=== PATIENT | male | born 1945 | race Asian ===

== ENCOUNTER 2023-04-19 20:11 | Emergency (ER) | payer OTHER, SELFPAY ==
[2023-04-19 20:23] VITALS: BP 155/112
--- NOTE | 2023-04-19 21:53 | ED.GENMED ---
History of Present Illness
General
Chief Complaint: Skin Problem
Source: patient
Exam Limitations: none
Time Seen by Provider: 04/19/23 21:36
Travel History
Have you had any contact with someone who has COVID-19?: No
Do you have any symptoms of coronavirus? Fever > 100 degrees, chills, cough, shortness of breath, sore throat, loss of taste or smell, muscle aches, or headache?: No
History of Present Illness
History of Present Illness:
See MDM
Past History
Past History
ED Past Medical History: HTN and Other (BPH with acute urinary retention requiring Basurto catheter placement)
ED Past Surgical History: None
Social History
Tobacco: Non-smoker
Alcohol: None
Drug: None
Personal: Other (With family)
Living: with family
Employment: Retired
Family History
Family History: Other (Noncontributory); Negative Diabetes
Phy Exam
Physical Exam
Physical Exam:
See MDM
Course
Orders/Labs/Results
Orders:
Orders
04/19/23 21:52
Oxycodone/Acetaminophen [Percocet 5/325] 1 tablet PO NOW STA
Valacyclovir HCl [Valtrex] 1,000 mg PO ONCE ONE
Vital Signs
Initial and Last Documented VS:
Initial Vital Signs
Temp Pulse Resp BP Pulse Ox
97.4 F 85 20 155/112 98
04/19/23 20:23 04/19/23 20:23 04/19/23 20:23 04/19/23 20:23 04/19/23 20:23
Last Documented Vital Signs
Temp Pulse Resp BP Pulse Ox
97.4 F 85 20 155/112 98
04/19/23 20:23 04/19/23 20:23 04/19/23 20:23 04/19/23 20:23 04/19/23 20:23
MDM/Problems Addressed
Differential Diagnosis Includes:
HPI and MDM Narrative:
77-year-old male presenting with a rash and headache. He noticed the rash yesterday morning. The rash has since spread. It does remain on his forehead on the right. He denies any blurry vision or eye pain
On exam, patient has rash consistent with shingles along ophthalmic branch of trigeminal nerve. Pupils equal reactive. No injected sclera
Physical exam
General: Well appearing and non-toxic
HEENT: protecting airway. Sclera not injected. Pupils equal and reactive
Neck: appears supple
CV: No evidence of cyanosis
Resp: No accessory muscle use
Abd: Non-distended
Extremities: No deformities
Neuro: alert
Psych: Normal affect
Skin: Shingles rash to right forehead
Problems Addressed including Acute and Chronic Conditions affecting care:
1. Shingles
Acuity: acute
Prognosis: stable
Details: Will start Valtrex. He denies eye complaint. Discussed follow-up with ophthalmology if he develops any eye pain or visual disturbance
Differential Diagnosis (but not limited to): Shingles, migraine
Testing considered: CT head
Drug therapy (if applicable): OTC meds, please see d/c instruction regarding Rx drugs
Amount and/or Complexity of Data Reviewed
Clinical info obtained from: Patient
External data reviewed: Baseline creatinine clearance between 30-39
Labs I independently reviewed (but not limited to): N/A
Radiology: N/A
Pulse Ox: not hypoxic
EKG independently reviewed: N/A
Multifocal Lens Assembler: N/A
Critical Care: N/A
Risk of Complication:
Social Determinants of health: Good social support
Discussed with other providers: N/A
Escalation of Care includes Admit/Obs: After being observed in the Emergency Department, pt stable for discharge.
Occasional wrong word or 'sound a like' substitutions may have occurred due to the inherent limitations of voice recognition software. Read the chart carefully and recognize, using context, where substitutions have occurred.
*Critical Care Note
Total Time (30-74mins, 75-104mins- exclusive of procedures): Not Applicable
ED Attending Note
-
Portions of this chart may have been created with voice recognition software.� Occasional wrong word or��sound alike� substitutions may have occurred due to the inherent limitations of voice recognition software.
Discharge Plan
Departure
Patient Disposition: Home (Routine Discharge)
Date of Disposition: 04/19/23
Time of Disposition: 21:57
Patient with high blood pressure during this ER visit?: Yes
Discharge Problem:
Shingles
Instructions: Shingles (DC), BLOOD PRESSURE
Prescriptions:
New
valacyclovir [Valtrex] 1 gram tablet
1,000 mg PO BID Qty: 14 0RF
oxycodone 5 mg tablet
5 mg PO Q8H PRN (Reason: Pain) Qty: 7 0RF
No Action
dutasteride 0.5 MG capsule
0.5 mg PO DAILY
tamsulosin 0.4 MG capsule
0.8 mg PO HS
amlodipine 5 MG tablet
5 mg PO DAILY
Patient Comments:
combo med with atenolol 50mg
atenolol 50 MG tablet
50 mg PO DAILY
Patient Comments:
combo med with amlodipine
Rabeprazole Sodium
20 mg PO DAILY
Patient Comments:
combo with domperidone
enteric coated
tolterodine 4 MG capsule,extended release 24hr
4 mg PO DAILY 0RF
Referrals:
Adarsh Garcia MD [Family Provider] -
Activity Restrictions/Additional Instructions:
Please return for any worsening symptoms.
You may return at any time if you have further concerns.
Please follow up with your doctor at the first available appointment, preferably this week.
If you develop eye pain or eye redness, please see the eye doctor.
Thank you for choosing [facility].
Interventions
Interventions:
*Risk Screen - Suicide Last Done: 04/19/23 20:23
*General Assessment Last Done: 04/19/23 20:23
*Neglect/Abuse Screening Last Done: 04/19/23 20:23
ED- Fall Risk Assessment Last Done: 04/19/23 20:23
*ED COVID-19 Vaccine History Last Done: 04/19/23 20:23
ED-Skin Assessment Last Done: 04/19/23 21:52
[2023-04-19] MEDS: VALTREX 1000 MG PO (22:13)
[2023-04-19] MEDS: PERCOCET 5/325 1 TABLET PO (22:13)
[2023-04-19 22:18] VITALS: BP 153/110
== END 2023-04-19 22:20 | disposition home or self-care (01) ==
LOC: EMR 20:11
PROVIDERS: EMERGENCY PHYSICIAN Student in an Organized Health Care Education/Training Program; FAMILY PHYSICIAN Family Medicine
DX: B02.9 Zoster without complications (principal); R51.9 Headache, unspecified; N40.1 Benign prostatic hyperplasia with lower urinary tract symptoms; R33.8 Other retention of urine; I10 Essential (primary) hypertension
CPT/HCPCS: 99283

== ENCOUNTER 2024-05-17 17:09 | Inpatient (IN) | payer OTHER, SELFPAY ==
[2024-05-17] VITALS (9 sets, daily range): BP systolic 112–149; BP diastolic 65–95; BMI 23.0
[2024-05-17 11:49] LABS: % Basophils 0.3 % (0-2); % Eosinophils 1.1 % (0-6); % Immature Granulocytes 0.7 % (0-0.5); % Lymphocytes 13.6 % (20.5-51.1); % Monocytes 10.6 % (1.7-9.3); % Neutrophils 73.7 % (42.2-75.2); Absolute Eosinophils 0.1 10^3/uL (0-0.7); Absolute Immature Granulocytes 0.1 10^3/uL (0-0.05); Absolute Lymphocytes 1.3 10^3/uL (1.2-3.4); Absolute Neutrophils 7.2 10^3/uL (1.4-6.5); Hematocrit 34.5 % (39.0-52.0); Hemoglobin 10.7 g/dL (13.0-18.0); Mean Corpuscular Hgb 25.5 pg (27.0-31.0); Mean Corpuscular Volume 82.1 fL (80.0-94.0); Mean Platelet Volume 9.3 fL (7.4-10.4); Nucleated Red Blood Cells % 0 % (-); Platelet Count 565 10^3/uL (130-400); Red Cell Dist. Width 14.6 % (11.5-14.5); White Blood Cell Count 9.7 10^3/uL (4.8-10.8)
[2024-05-17 12:10] LABS: ALT (SGPT) 48 U/L (0-50); AST (SGOT) 22 U/L (17-59); Albumin 3.2 g/dl (3.5-5.0); Alkaline Phosphatase 89 U/L (38-126); Blood Urea Nitrogen 93 mg/dl (9-20); Carbon Dioxide 15 mmol/L (22-30); Chloride 107 mmol/L (98-107); Glucose 127 mg/dl (70-99); Potassium 5.9 mmol/L (3.5-5.1); Sodium 134 mmol/L (135-145); Total Bilirubin 0.5 mg/dl (0.2-1.3); Total Protein 6.2 g/dl (6.3-8.2); eGFR 8.63
[2024-05-17] MEDS: NSS 1000 IV (12:51)
--- NOTE | 2024-05-17 13:15 | ED.GENMED ---
History of Present Illness
General
Chief Complaint: Failure to Thrive
Time Seen by Provider: 05/17/24 12:18
History of Present Illness
History of Present Illness:
78-year-old male with history of hypertension, CKD presenting to the emergency department for concern of failure to thrive. Patient arrives with his daughter in law who notes that his in 05/05 unexpectedly. Since then patient has
had a decline and in the past 2 days has not eaten or drank anything. He has also had decreased urination. She notes chronic incontinence of both urine and stool. No report of any fever. Patient himself denies chest pain or difficulty breathing.
He denies abdominal pain. No report of any fall. [id number] notes that the last time he had his creatinine checked, it was 3. No additional history obtained at this time.
Past History
Past History
ED Past Medical History: HTN and Other (BPH with acute urinary retention requiring Basurto catheter placement)
ED Past Surgical History: None
Social History
Tobacco: Non-smoker
Alcohol: None
Drug: None
Personal: Other (With family)
Living: with family
Employment: Retired
Family History
Family History: Other (Noncontributory); Negative Diabetes
Phy Exam
Physical Exam
Physical Exam:
General: Dry mucous membranes
HEENT: protecting airway
Neck: appears supple
CV: Normal heart rate, regular rhythm
Resp: No accessory muscle use, no increased work of breathing, lungs clear to auscultation bilaterally
Abd: Soft and non-distended, no tenderness to palpation
Extremities: No deformities, no swelling, no erythema
Neuro: alert, no focal neurologic deficit
: deferred
Rectal: deferred
Psych: Normal affect
Skin: Intact
Course
Orders/Labs/Results
Orders:
Orders
05/17/24 11:31
Complete Blood Count/With Diff Urgent
Comprehensive Metabolic Panel Urgent
05/17/24 12:40
0.9% Sodium Chloride 1000 ml [Nss] 1,000 ml IV BOLUS
05/17/24 12:41
Electrocardiogram (*1) Urgent
Reason for Study: Fatigue / Weakness
EKG- Treatment ONCE
05/17/24 12:50
Troponin I Urgent
05/17/24 13:15
Urinalysis Reflex To Culture Urgent
Date Specimen was Collected: 05/17/24
Time Specimen was Collected: 13:15
Urine Microscopic Reflex Cult Urgent
Abnormal Lab Results
05/17/24 05/17/24
11:31 13:15
RBC 4.20 L 10^6/uL
(4.70-6.10)
Hgb 10.7 L g/dL
(13.0-18.0)
Hct 34.5 L %
(39.0-52.0)
MCH 25.5 L pg
(27.0-31.0)
MCHC 31.0 L g/dL
(33.0-37.0)
RDW 14.6 H %
(11.5-14.5)
Plt Count 565 H 10^3/uL
(130-400)
Abs Immat Gran (auto) 0.1 H 10^3/uL
(0-0.05)
Absolute Neuts (auto) 7.2 H 10^3/uL
(1.4-6.5)
Absolute Monos (auto) 1.0 H 10^3/uL
(0.1-0.6)
Immature Gran % 0.7 H %
(0-0.5)
Lymphocytes % 13.6 L %
(20.5-51.1)
Monocytes % 10.6 H %
(1.7-9.3)
Sodium 134 L mmol/L
(135-145)
Potassium 5.9 H mmol/L
(3.5-5.1)
Carbon Dioxide 15 L mmol/L
(22-30)
BUN 93 H mg/dl
(9-20)
Creatinine 6.2 H* mg/dL
(0.7-1.3)
Glucose 127 H mg/dl
(70-99)
Total Protein 6.2 L g/dl
(6.3-8.2)
Albumin 3.2 L g/dl
(3.5-5.0)
Urine Bacteria (Reflex) Few A
(Negative)
Urine Albumin (Reflex) 2+ A
(Neg - Trace)
05/17/24 11:31
05/17/24 11:31
Vital Signs
Initial and Last Documented VS:
Initial Vital Signs
Temp Pulse Resp BP Pulse Ox
98.3 F 89 16 117/82 99
05/17/24 11:19 05/17/24 11:19 05/17/24 11:19 05/17/24 11:19 05/17/24 11:19
Last Documented Vital Signs
Temp Pulse Resp BP Pulse Ox
98.3 F 74 18 112/65 100
05/17/24 11:19 05/17/24 14:30 05/17/24 14:30 05/17/24 14:14 05/17/24 14:15
MDM/Problems Addressed
MDM/Problems Addressed:
78-year-old male with history of high blood pressure presenting for concern of failure to thrive. Vital signs on arrival are normal.
On exam patient is in no acute distress, does have dry mucous membranes. Patient has had overall decreased p.o. intake in the past 2 days, known history of chronic renal disease so acute on chronic renal disease is a consideration. Patient had
laboratory analysis obtained prior to my assessment with acute kidney injury, creatinine of 6.2 with a BUN of 93. Creatinine last checked on 01/2023 was 2.2. Suspect prerenal from acute dehydration. Did obtain bedside ultrasound, no retention.
[id number] also notes change in behavior, has been calling multiple family members. Suspect underlying uremia. Will start IV fluids. Potassium is elevated at 5.9, however EKG without significant abnormality.
12:50 - Discussed with renal, will evaluate. Plan for admission
*EKG
Interpreted by ED Provider?: Yes
EKG Intrepretation Date: 05/17/24
EKG Intrepretation Time: 13:16
Interpretation: normal
Comparison EKG: no comparison EKG present
Heart Rate: 76
Rate: normal
Rhythm: sinus
O'Brien: left axis deviation
Interval: normal interval
QRS Pattern: normal QRS
Ischemia: no ischemia
*Critical Care Note
Total Time (30-74mins, 75-104mins- exclusive of procedures): Not Applicable
comment:
The high probability of a clinically significant, sudden or life threatening deterioration of the genitourinary system(s), acute renal failure, required my full and direct attention, intervention and personal management. The aggregate critical care
time was 36 minutes. This time is in addition to time spent performing reported procedures but includes the following:
[x] Data Review and interpretation
[x] Patient assessment and monitoring of vital signs
[x] Documentation
[x] Medication orders and management
ED Attending Note
-
Portions of this chart may have been created with voice recognition software.� Occasional wrong word or��sound alike� substitutions may have occurred due to the inherent limitations of voice recognition software.
Discharge Plan
Departure
Patient Disposition: Admit
Date of Disposition: 05/17/24
Time of Disposition: 13:21
Presentation/result/management discussed w/ accepting MD/DO: Hospitalist
Patient with high blood pressure during this ER visit?: No
Condition: Critical
Discharge Problem:
Acute kidney failure, Adult failure to thrive
Prescriptions:
No Action
amlodipine 5 MG tablet
10 mg PO DAILY
chlorthalidone 25 mg Tablet
25 mg PO DAILY
sodium bicarbonate 650 mg Tablet
325 mg PO DAILY
valsartan 320 mg Tablet
320 mg PO QPM
hydralazine 50 mg Tablet
50 mg PO DAILYPRN PRN (Reason: high bp over 160)
rosuvastatin [Crestor] 20 mg Tablet
20 mg PO DAILY
Interventions
Interventions:
*Risk Screen - Suicide Last Done: 05/17/24 12:34
*General Assessment Last Done: 05/17/24 12:33
*Neglect/Abuse Screening Last Done: 05/17/24 12:34
Discharge Date and Time
Print Language: TRINIDADIAN
[2024-05-17 13:28] LABS: Urine Albumin 2+ (Neg - Trace); Urine Bilirubin Negative (Negative); Urine Character Clear (Clear); Urine Color Yellow; Urine Glucose Negative (Negative); Urine Ketone Negative (Negative); Urine Leukocyte Negative (Negative); Urine Nitrite Negative (Negative); Urine Occult Blood Negative (Negative); Urine Specific Gravity 1.015 (<1.030); Urine Urobilinogen Negative (Neg - 1+)
--- NOTE | 2024-05-17 13:32 | W.CON.NEPH ---
Addendum entered and electronically signed by Chris Doran DO 05/17/24 16:21:
Spoke with patient's services coordinator who has not seen him since last April when his creatinine was 2.4. He has missed several appointments. Apparently his underlying etiology his polycystic kidney disease
Original Note:
Consultation
-
Date/Time Consultation Requested: 05/17/24, 1:15 PM
Date/Time Consultation Performed: , 1:15 PM
Requesting Provider: Dr. Mcgarry
Performing Provider: Dr. Doran
Reason for Consultation: JEROMY/CKD 4
Medical History
-
Chief Complaint: JEROMY/CKD 4
History of Present Illness:
The patient is a 78-year-old male with a past medical history of CKD stage IV, who as per discussion with his son, is maintained a creatinine level of 3 per recent lab work within the past year.He follows with another services coordinator at an outside
system in [place]. He has a history of hypertension maintained on a multi drug regimen which includes chlorthalidone, amlodipine and valsartan. He is a history of metabolic acidosis and is maintained on oral bicarbonate therapy. The patient
also has a history of prostate cancer with previous obstructive uropathy per review of older notes. He presented to the hospital with failure to thrive with associated decreased oral intake over the past 2 weeks as well as evolving confusion and
weakness. Of note, his just 2 weeks prior. On presentation to the emergency room, He was hyperkalemic with potassium of 5.9 and in acute renal failure with a BUN of 93 and a creatinine of 6.2. He also had a non-gap metabolic acidosis
with a serum bicarbonate level 15.
Past Medical History
Chronic kidney disease stage IV with baseline creatinine of 3
Hypertension
BPH
Prostate cancer with previous obstructive uropathy
Metabolic acidosis
Social History
Tobacco: Non-Smoker
Alcohol: None
Drug: None
Living: With Family
Family History
CKD wiht family back in [facility]
Allergies / Home Medications
Allergy/AdvReac Type Severity Reaction Status Date / Time
No Known Allergies Allergy Verified 05/17/24 11:21
�Medication �Instructions �Recorded �Confirmed �Type
amlodipine 5 mg tablet 10 mg PO DAILY 09/13/18 05/17/24 History
chlorthalidone 25 mg tablet 25 mg PO DAILY 05/17/24 05/17/24 History
sodium bicarbonate 650 mg tablet 650 mg PO DAILY 05/17/24 05/17/24 History
valsartan 320 mg tablet 320 mg PO QPM 05/17/24 05/17/24 History
Review of Systems
-
Unable to obtain full review of systems at this time due to: Language Barrier
History Source: Family
All other systems: Negative unless noted
Constitutional: Weight Loss and Fatigue
Respiratory: Other (shortness of breath)
Cardiac: Chest Pain
Abdomen/GI: Diarrhea
: No Symptoms and Other (, decreased urine output over past week)
Skin: No Symptoms
Neurological: Other ( increasing confusion as per [id number])
Endocrine: No Symptoms
Hematologic/Lymphatic: No Symptoms
Physical Exam
Vital Signs
Vital Signs
Temp Pulse Resp BP Pulse Ox
98.3 F 74 23 135/86 99
05/17/24 11:19 05/17/24 12:45 05/17/24 12:45 05/17/24 12:22 05/17/24 12:45
Lab Results
05/17/24 11:31
05/17/24 11:31
WBC 9.7 10^3/uL (4.8-10.8) 05/17/24 11:31
RBC 4.20 10^6/uL (4.70-6.10) L 05/17/24 11:31
Hgb 10.7 g/dL (13.0-18.0) L 05/17/24 11:31
Hct 34.5 % (39.0-52.0) L 05/17/24 11:
Plt Count 565 10^3/uL (130-400) H 05/17/24 11:31
Sodium 134 mmol/L (135-145) L 05/17/24 11:
Potassium 5.9 mmol/L (3.5-5.1) H 05/17/24 11:
Chloride 107 mmol/L (98-107) 05/17/24 11:
Carbon Dioxide 15 mmol/L (22-30) L 05/17/24 11:
BUN 93 mg/dl (9-20) H 05/17/24 11:
Creatinine 6.2 mg/dL (0.7-1.3) H* 05/17/24 11:
eGFR 8.63 05/17/24 11:
Glucose 127 mg/dl (70-99) H 05/17/24 11:
Calcium 9.0 mg/dl (8.4-10.2) 05/17/24 11:
Albumin 3.2 g/dl (3.5-5.0) L 05/17/24 11:31
Physical Exam
General: Oriented ( but intermittently confused), No Distress and Nontoxic
HEENT: PERRL, EOMI, Anicteric, Conjunctivae Clear, Ear/Nose Intact, Oropharynx Clear/Moist, Dentition Intact, Facial Symmetry, Neck Supple, Trachea Midline, No JVD and No Thyromegaly
Respiratory: Clear
Cardiac: S1/S2 and Regular Rate/Rhythm
Breast: Deferred by me
Abdomen: Soft, Nontender, Nondistended, Normal Bowel Sounds and No Hepatosplenomegaly
Rectal: Deferred by Provider
Genito-urinary: No Costovertebral Tender
Musculoskeletal: No Clubbing, No Cyanosis and No Edema
Skin: No Rash
Neuro: Nonfocal/Grossly Intact and Other (. No asterixis)
Hematologic/Lymphatic: No Cervical Lymphadenopathy, No Submandibular Lymphadenopathy and No Supraclavicular Lymphadenopathy
Psych: Other ( intermittent confusion noted)
Data Reviewed
-
Ultrasound: Other ( to obtain kidney and bladder ultrasound and review)
Medical Tests (Nuc Med, Echo etc): Other (. EKG report reviewed, sinus rhythm with left axis deviation 70 bpm)
Labs: Labs Reviewed by me ( BMP, CBC)
Old Records: Reviewed ( reviewed old records and labs from February 2020 in electronic medical record creatinine 2.2)
Assessment/Plan
-
Impression:
Acute kidney injury
CKD stage IV with baseline creatinine of 3
Non-gap metabolic acidosis (AG 12)
Hypertension
Hyperkalemia
Is treated prostate cancer
Anemia
Plan:
I was informed by his son that the patient has a baseline creatinine of 3, which was obtained sometimes within the past year by his services coordinator that the [place] area,No other details were available
The patient now presents with increasing confusion and failure to follow up with acute renal failure with associated hyperkalemia and metabolic acidosis
-Hold ARB
- I would administer alkaline IV fluids, i.e. D5W with 150 mEq of sodium bicarbonate per liter at 125 cc per hour
-Continue oral bicarbonate
-Can provide Lokelma , 10 g �3 doses Re: Hyperkalemia, I expect hyperkalemia to improve with correction of non-gap metabolic acidosis
-Obtained kidney and bladder ultrasound (evaluate for obstruction Given previous history of obstructive uropathy in setting of prostate cancer)
-Obtain urinalysis, urine sodium, urine creatinine,and urine protein
-No acute dialysis requirement. However I believe evolving uremia may explain some of the patient's underlying confusion and failure to thrive
-I did explain to both the patient's son and [id number] that dialysis may be in the near future
-Would like to obtain records from his services coordinator in [place]
[2024-05-17 13:55] LABS: Troponin I < 0.012 ng/ml
[2024-05-17 14:21] LABS: Urine Squamous Cell >30 /LPF (Few)
[2024-05-17 14:22] LABS: Urine Amorphous Seen
[2024-05-17 14:23] LABS: Urine Bacteria Few (Negative); Urine Granular Cast 0-2 /LPF (0); Urine Red Blood Cell 0-2 /HPF (0-2); Urine White Cell 0-2 /HPF (0-5)
--- NOTE | 2024-05-17 16:57 | HPS.HSE ---
Family Physician
-
Family Physician: EMRE Begum
Chief Complaint
-
Failure to thrive with low oral intake
History of Present Illness
Patient is a 78 years old male with history of chronic kidney disease stage IV secondary to polycystic kidney disease, multidrug controlled hypertension, history of prostate carcinoma with previous obstructive uropathy.
Patient does not speak [place] and history was taken from medical records as well as patient's son at the bedside
Apparently over the last few weeks patient with decreased to minimal oral intake including fluids after his passing.
Patient was brought to the emergency room for evaluation and with workup was found to have acute kidney injury with elevated creatinine at 6 as well as hyperkalemia.
He is initial workup with bladder scan in the ED showed 75 mL with no evidence of retention.
Patient denies any respiratory, gastrointestinal, or urinary symptoms
He has son at the bedside reports minuscule oral intake and depressive affect.
Medical History
Past Medical History
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
Past Surgical History: Reports None
Social History
Tobacco: Non-smoker
Alcohol: None
Personal:
Living: With Family
Family History
Family History: Not pertinent
Allergies / Home Medications
Allergies reflects when Allergies were last updated in [facility].
Home Medications with original date entered in [facility]
Allergy/Medication List:
Allergies
Allergy/AdvReac Type Severity Reaction Status Date / Time
No Known Allergies Allergy Verified 05/17/24 11:21
Home Medications
amlodipine 5 mg tablet 10 mg PO DAILY 09/13/18
chlorthalidone 25 mg tablet 25 mg PO DAILY 05/17/24
hydralazine 50 mg tablet 50 mg PO DAILYPRN PRN high bp over 160 05/17/24
rosuvastatin 20 mg tablet (Crestor) 20 mg PO DAILY 05/17/24
sodium bicarbonate 650 mg tablet 325 mg PO DAILY 05/17/24
valsartan 320 mg tablet 320 mg PO QPM 05/17/24
Review of Systems
-
A 12 point ROS was completed and negative except as noted: Yes
Physical Exam
Vital Signs
Vital Signs
Temp Pulse Resp BP Pulse Ox
98.3 F 65 14 149/94 100
05/17/24 11:19 05/17/24 16:30 05/17/24 16:30 05/17/24 16:25 05/17/24 14:15
Physical Exam
General: Well Developed, Well Nourished and No Apparent Distress
HEENT: NormoCephalic, Moist mucous membranes and Atraumatic
Respiratory: Clear
Cardiac: S1/S2 and Regular Rhythm; No Murmur or Rub
GI: Soft, Non Tender, Non Distended and Normal Bowel Sounds; No Organomegaly
Rectal: Deferred by Provider
Musculoskeletal: No Clubbing, No Cyanosis and No Edema
Skin: No Rash
Neuro: Nonfocal/grossly intact
Laboratory Results
-
05/17/24 11:31
05/17/24 11:31
Laboratory Results
Total Bilirubin 0.5 mg/dl (0.2-1.3) 05/17/24 11:31
AST 22 U/L (17-59) 05/17/24 11:31
ALT 48 U/L (0-50) 05/17/24 11:31
Alkaline Phosphatase 89 U/L (38-126) 05/17/24 11:31
Troponin I < 0.012 ng/ml 05/17/24 12:50
Impression/Plan
-
IMPRESSION:
Failure to thrive with meniscal oral intake.
Acute kidney injury on CKD stage IV baseline creatinine 2.4.
Acute on chronic metabolic acidosis with normal anion gap
Hyperkalemia
Other conditions:
PKD.
Hypertension.
History of prostate carcinoma treated
Anemia of chronic disease/CKD
PLAN:
Acute kidney injury likely prerenal with failure to thrive and minuscule oral intake reported
Bladder scan in ED 75 mL
Urinalysis bland diet
Nephrology input appreciated.
Ultrasound of the kidneys.
Continue bladder scan for retention.
Hold chlorthalidone and valsartan.
Initiate IV bicarbonate infusion D5 HCO3 150 mEq at 125 ml/hr
Hyperkalemia baseline ECG with no related changes.
Continue alkalinized fluids
Continue oral bicarb
Lokelma
Follow BMP
Currently no indication for urgent dialysis
Essential hypertension
Continue amlodipine
Hold chlorthalidone and losartan given JEROMY
Failure to thrive, deconditioning
Physical therapy assessment
Consider psychiatry evaluation if persistent symptoms of grieving
[2024-05-17] MEDS: LOKELMA 10 GRAM PO (19:42)
[2024-05-17] MEDS: SODIUM BICARBONATE 1150 MEQ IV (20:05)
[2024-05-17] MEDS: HEPARIN 5000 UNITS SC (21:15)
[2024-05-17] MEDS: SODIUM BICARBONATE 325 MG PO (21:16)
[2024-05-17 22:16] LABS: Urine Sodium 108 mmol/L (30-90)
[2024-05-18 03:00] VITALS: BP 131/78
--- NOTE | 2024-05-18 03:56 | PTCARENOTE ---
Pt assessed as per work list flow sheet. Admission questions answered by son due to language barrier. Pt denies pain and SOB. Ambulated to BR. No s/s of distress assessed. Will continue to monitor.
[2024-05-18] MEDS: SODIUM BICARBONATE 1150 MEQ IV ×3 (05:17→21:15)
[2024-05-18] MEDS: LOKELMA 10 GRAM PO ×3 (05:17→18:03)
[2024-05-18 06:00] VITALS: BMI 23.0
[2024-05-18 07:16] VITALS: BP 156/90
[2024-05-18 07:46] LABS: % Basophils 0.4 % (0-2); % Eosinophils 1.2 % (0-6); % Immature Granulocytes 0.5 % (0-0.5); % Lymphocytes 18.4 % (20.5-51.1); % Monocytes 11.3 % (1.7-9.3); % Neutrophils 68.2 % (42.2-75.2); Absolute Eosinophils 0.1 10^3/uL (0-0.7); Absolute Lymphocytes 1.4 10^3/uL (1.2-3.4); Absolute Monocytes 0.9 10^3/uL (0.1-0.6); Absolute Neutrophils 5.1 10^3/uL (1.4-6.5); Hematocrit 31.5 % (39.0-52.0); Hemoglobin 10.3 g/dL (13.0-18.0); Mean Corp Hgb Conc. 32.7 g/dL (33.0-37.0); Mean Corpuscular Hgb 25.9 pg (27.0-31.0); Mean Corpuscular Volume 79.3 fL (80.0-94.0); Mean Platelet Volume 9.2 fL (7.4-10.4); Nucleated Red Blood Cells % 0 % (-); Platelet Count 496 10^3/uL (130-400); Red Blood Cell Count 3.97 10^6/uL (4.70-6.10); White Blood Cell Count 7.5 10^3/uL (4.8-10.8)
[2024-05-18] MEDS: CRESTOR 5 MG PO (07:48)
[2024-05-18] MEDS: NORVASC 10 MG PO (07:48)
[2024-05-18] MEDS: HEPARIN 5000 UNITS SC ×2 (07:49→21:10)
[2024-05-18] MEDS: SODIUM BICARBONATE 325 MG PO (07:49)
[2024-05-18 08:19] LABS: Blood Urea Nitrogen 79 mg/dl (9-20); Calcium 8.2 mg/dl (8.4-10.2); Carbon Dioxide 22 mmol/L (22-30); Chloride 100 mmol/L (98-107); Estimated Creatinine Clearance 11 ml/min; Glucose 116 mg/dl (70-99); Potassium 5.1 mmol/L (3.5-5.1); Sodium 133 mmol/L (135-145); eGFR 11.44
[2024-05-18 11:00] VITALS: BP 138/83
--- NOTE | 2024-05-18 13:21 | W.PN.NEPH.PH ---
Today's Communication / Plan
-
Pending kidney ultrasound
We'll reobtain urine sodium, urine creatinine and urine protein
Maintain IV fluids to her adjusted
No acute dialysis requirements at this time
Assessment/Plan
-
Impression:
Acute kidney injury
CKD stage IV with baseline creatinine of 3
Non-gap metabolic acidosis (AG 12)
Hypertension
Hyperkalemia
Is treated prostate cancer
Anemia
Plan:
I was informed by his son that the patient has a baseline creatinine of 3, which was obtained sometimes within the past year by his oil boiler that the [facility],I spoke with his oil boiler yesterday to inform me that his creatinine was
2.4 in April 2023, but that he has not been seen in a year.She also told me that he does have underlying polycystic kidney disease.
The patient now presents with increasing confusion and failure to follow up with acute renal failure with associated hyperkalemia and metabolic acidosis
-Holding ARB
- , will adjust IV fluids accordingly
-Continue oral bicarbonate
- hyperkalemia, resolved after low, and alkalize IV fluids provided
- pending kidney and bladder ultrasound (evaluate for obstruction Given previous history of obstructive uropathy in setting of prostate cancer)
-No evidence of bladder retention per postvoid bladder scan obtained this morning
-Obtained urinalysis,(2 plus albumin, no blood) urine sodium, urine creatinine,and urine protein
-No acute dialysis requirement. However I believe evolving uremia may explain some of the patient's underlying confusion and failure to thrive
-I did explain to both the patient's son and [id number] that dialysis may be in the near future
-
-
Date of Service: May 18, 2024
CC / HPI / ROS
-
Chief Complaint:
JEROMY
CKD 4
History of Present Illness:
Hemodynamically stable
Creatinine down to 4.9 From 6.2
Metabolic acidosis, improving
Hyperkalemia, improved
Review of Systems:
Subjectively nonoliguric
No fevers
Labs
-
Labs:
WBC 7.5 10^3/uL (4.8-10.8) 05/18/24 07:13
RBC 3.97 10^6/uL (4.70-6.10) L 05/18/24 07:13
Hgb 10.3 g/dL (13.0-18.0) L 05/18/24 07:13
Hct 31.5 % (39.0-52.0) L 05/18/24 07:13
Plt Count 496 10^3/uL (130-400) H 05/18/24 07:13
Sodium 133 mmol/L (135-145) L 05/18/24 07:13
Potassium 5.1 mmol/L (3.5-5.1) 05/18/24 07:13
Chloride 100 mmol/L (98-107) 05/18/24 07:13
Carbon Dioxide 22 mmol/L (22-30) 05/18/24 07:13
BUN 79 mg/dl (9-20) H 05/18/24 07:13
Creatinine 4.9 mg/dL (0.7-1.3) H* 05/18/24 07:13
eGFR 11.44 05/18/24 07:13
Glucose 116 mg/dl (70-99) H 05/18/24 07:13
Calcium 8.2 mg/dl (8.4-10.2) L 05/18/24 07:13
Albumin 3.2 g/dl (3.5-5.0) L 05/17/24 11:31
Physical Exam
-
Vital Signs:
Vital Signs
Temp Pulse Resp BP Pulse Ox
97.3 F 90 16 138/83 99
05/18/24 11:00 05/18/24 11:00 05/18/24 11:00 05/18/24 11:00 05/18/24 11:00
Cardiovascular:: Regular rate and rhythm
Respiratory:: Bilateral: Coarse
Lung Excursion:: Normal
Abdomen:: Nontender and Soft
Bowel Sounds:: Normal
Extremity Edema:: None: Bilateral:
Basurto Catheter: No
[2024-05-18 14:31] VITALS: BP 120/79
--- NOTE | 2024-05-18 15:53 | CM ---
Spoke with patient's son to obtain information for assessment. Patient son stated that patient's 10 days ago and since then patient has moved in with him in his apartment, all one level, 12 steps to enter. He has been independent
with all of his personal care, dressing and bathing. 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 Patient does not drive but family transports him to where he needs. He has no DME. He has never had VN or been to a SNF.
Patient has a prescription plan and uses, [facility], for all his medications.
His PCP is, Judith Ambrose.
Patient's son is hopeful that patient will be able to return home with him when stable for discharge.
Plan: Case management will continue to follow and assist with discharge planning. Will watch for needs.
--- NOTE | 2024-05-18 16:33 | W.PN.HOSP.TC ---
Today's Communication/Plan
-
Continue IV fluids
Follow-up renal function
Assessment / Plan
Assessment / Plan
IMPRESSION:
Failure to thrive with meniscal oral intake.
Metabolic encephalopathy in the settings of uremia
Acute kidney injury on CKD stage IV baseline creatinine 2.4.
Acute on chronic metabolic acidosis with normal anion gap
Hyperkalemia
Other conditions:
PKD.
Hypertension.
History of prostate carcinoma treated
Anemia of chronic disease/CKD
PLAN:
Acute kidney injury on CKD stage III with baseline creatinine 2�3 baseline
PKD
Acute kidney injury likely prerenal in nature in the settings poor oral intake and dehydration.
So far no evidence of retention
Renal/bladder ultrasound pending for complete evaluation per
Creatinine trending down with IV volume expansion while on alkalinized IV fluids
Continue oral bicarb in the edition
Monitor creatinine trend
Has been off chlorthalidone and valsartan since admission
Hyperkalemia
Improved with IV fluids and Lokelma
Essential hypertension
Continue amlodipine
Hold chlorthalidone and losartan given JEROMY
Failure to thrive, deconditioning
Suspect metabolic encephalopathy related to progressive urine
Physical therapy assessment
Consider psychiatry evaluation if persistent symptoms of grieving
Anticipated Discharge: > 48 hours
Subjective/Interval History
-
Date of Service: May 18, 2024
Objective Data
-
Labs:
Laboratory Results
05/18/24
07:13
WBC 7.5
Hgb 10.3 L
Hct 31.5 L
Plt Count 496 H
Sodium 133 L
Potassium 5.1
Chloride 100
Carbon Dioxide 22
BUN 79 H
Creatinine 4.9 H*
Glucose 116 H
Calcium 8.2 L
Vital Signs:
Vital Signs
Temp Pulse Resp BP Pulse Ox
98.5 F 93 16 120/79 99
05/18/24 14:31 05/18/24 14:31 05/18/24 14:31 05/18/24 14:31 05/18/24 14:31
I&O
05/17/24 05/18/24 05/19/24
06:59 06:59 06:59
Output Total 250 / 250
Balance -250 / -250
Physical Exam
-
General: Well Developed and No Apparent Distress
HEENT: Normocephalic, Atraumatic and Moist Mucous Membranes
Respiratory: Clear to Auscultation
Cardiac: Regular Rhythm and S1/S2; Negative Murmur, Rub or Gallop
GI: Soft, Nontender, Nondistended and Normal Bowel Sounds; Negative Organomegaly
Rectal: Deferred by Provider
Musculoskeletal: No Clubbing, No Cyanosis and No Edema
Skin: Negative Rash
Neuro: Nonfocal/Grossly Intact
[2024-05-18 19:00] VITALS: BP 133/84
[2024-05-18 23:00] VITALS: BP 109/68
[2024-05-19] VITALS (7 sets, daily range): BP systolic 111–138; BP diastolic 69–88; PULSE 133
--- NOTE | 2024-05-19 04:10 | PTCARENOTE ---
Pt assessed as per work list flow sheet. Pt appears more interactive with staff this evening. Family stated pt was eating be this today. No s/s of distress assessed. Will continue to monitor.
[2024-05-19] MEDS: LOKELMA 10 GRAM PO ×2 (06:02→14:55)
[2024-05-19 07:16] LABS: Blood Urea Nitrogen 69 mg/dl (9-20); Carbon Dioxide 31 mmol/L (22-30); Chloride 96 mmol/L (98-107); Estimated Creatinine Clearance 12 ml/min; Glucose 117 mg/dl (70-99); Sodium 133 mmol/L (135-145); eGFR 13.38
[2024-05-19] MEDS: SODIUM BICARBONATE 325 MG PO (08:12)
[2024-05-19] MEDS: CRESTOR 5 MG PO (08:14)
[2024-05-19] MEDS: HEPARIN 5000 UNITS SC ×2 (08:14→19:45)
[2024-05-19] MEDS: NORVASC 10 MG PO (08:15)
--- NOTE | 2024-05-19 10:55 | W.PN.NEPH.PH ---
Today's Communication / Plan
-
NSS
Assessment/Plan
-
Impression:
Acute kidney injury
CKD stage IV with baseline creatinine of 3
Non-gap metabolic acidosis (AG 12)
Hypertension
Hyperkalemia
Is treated prostate cancer
Anemia
Plan:
I was informed by his son that the patient has a baseline creatinine of 3, which was obtained sometimes within the past year by his applications architect that the [facility],I spoke with his applications architect yesterday to inform me that his creatinine was
2.4 in April 2023, but that he has not been seen in a year. She also told me that he does have underlying polycystic kidney disease.
The patient now presents with increasing confusion and failure to follow up with acute renal failure with associated hyperkalemia and metabolic acidosis
hold ARB still
change to NSS
follow BMP
ambulation
could follow Cr as outpatient, 2x/week if dc planning
-
-
Date of Service: May 19, 2024
CC / HPI / ROS
-
Chief Complaint:
JEROMY
CKD 4
History of Present Illness:
Hemodynamically stable
Creatinine down to 4.3 From 6.2
Metabolic acidosis, improving
Hyperkalemia, improved
Na low 133
Review of Systems:
Subjectively nonoliguric
No fevers
no CP/SOB
Labs
-
Labs:
WBC 7.5 10^3/uL (4.8-10.8) 05/18/24 07:13
RBC 3.97 10^6/uL (4.70-6.10) L 05/18/24 07:13
Hgb 10.3 g/dL (13.0-18.0) L 05/18/24 07:13
Hct 31.5 % (39.0-52.0) L 05/18/24 07:13
Plt Count 496 10^3/uL (130-400) H 05/18/24 07:13
Sodium 133 mmol/L (135-145) L 05/19/24 06:28
Potassium 5.0 mmol/L (3.5-5.1) 05/19/24 06:28
Chloride 96 mmol/L (98-107) L 05/19/24 06:28
Carbon Dioxide 31 mmol/L (22-30) H 05/19/24 06:28
BUN 69 mg/dl (9-20) H 05/19/24 06:28
Creatinine 4.3 mg/dL (0.7-1.3) H* 05/19/24 06:28
eGFR 13.38 05/19/24 06:28
Glucose 117 mg/dl (70-99) H 05/19/24 06:28
Calcium 8.0 mg/dl (8.4-10.2) L 05/19/24 06:28
Albumin 3.2 g/dl (3.5-5.0) L 05/17/24 11:31
Physical Exam
-
Vital Signs:
Vital Signs
Temp Pulse Resp BP Pulse Ox
98.8 F 70 18 129/88 98
05/19/24 07:40 05/19/24 08:15 05/19/24 07:40 05/19/24 08:15 05/19/24 07:40
Cardiovascular:: Regular rate and rhythm
Respiratory:: Bilateral: CTA and Bilateral: Rales
Lung Excursion:: Normal
Abdomen:: Nontender and Soft
Bowel Sounds:: Normal
Extremity Edema:: None: Bilateral:
[2024-05-19 10:57] LABS: Protein/creatinine Ratio 1.7; Urine Protein 33 mg/dl
[2024-05-19] MEDS: NSS 1000 IV (11:24)
--- NOTE | 2024-05-19 12:55 | PTCARENOTE ---
patient reported to daughter 09/30 middle chest after working with physical therapy. denied chest pain to nursing. b/p 115/79 and heart rate 120-140's after getting back to bed with therapy, denied sob, lightheadedness, dizziness, numbness or
tingling. EKG to be ordered stat. EKg showing NSR with left axis deviation. chest pain resolved at 12:15. at 1241, telephone order obtained for stat Troponin level. troponin level 0.012 at 1254. likely atyptical chest pain per Dr. Bowman,
will continue to monitor.
[2024-05-19 13:25] LABS: Troponin I < 0.012 ng/ml
--- NOTE | 2024-05-19 15:36 | W.PN.HOSP.TC ---
Today's Communication/Plan
-
IV fluids
Monitor BMP.
Monitor oral intake
Assessment / Plan
Assessment / Plan
IMPRESSION:
Failure to thrive with meniscal oral intake.
Metabolic encephalopathy in the settings of uremia
Acute kidney injury on CKD stage IV baseline creatinine 2.4.
Acute on chronic metabolic acidosis with normal anion gap
Hyperkalemia
Other conditions:
PKD.
Hypertension.
History of prostate carcinoma treated
Anemia of chronic disease/CKD
PLAN:
Acute kidney injury on CKD stage III with baseline creatinine 2�3 baseline
PKD
Acute kidney injury likely prerenal in nature in the settings poor oral intake and dehydration.
So far no evidence of retention
Renal/bladder ultrasound pending for complete evaluation per
Creatinine trending down with IV volume expansion while on alkalinized IV fluids.
IV fluids changed to normal saline
Continue oral bicarb in the edition
Monitor creatinine trend
Has been off chlorthalidone and valsartan since admission
Transient episode of chest pain likely atypical on 05/19 baseline ECG and cardiac markers negative for ischemia
Hyperkalemia
Improved with IV fluids and Lokelma
Essential hypertension
Continue amlodipine
Hold chlorthalidone and losartan given JEROMY
Failure to thrive, deconditioning
Suspect metabolic encephalopathy related to progressive urine
Physical therapy assessment
Consider psychiatry evaluation if persistent symptoms of grieving
Anticipated Discharge: 24 - 48 hours
Subjective/Interval History
-
Date of Service: May 19, 2024
Objective Data
-
Labs:
Laboratory Results
05/19/24
06:28
Sodium 133 L
Potassium 5.0
Chloride 96 L
Carbon Dioxide 31 H
BUN 69 H
Creatinine 4.3 H*
Glucose 117 H
Calcium 8.0 L
Vital Signs:
Vital Signs
Temp Pulse Resp BP Pulse Ox
97.6 F 88 16 111/77 98
05/19/24 15:22 05/19/24 15:22 05/19/24 15:22 05/19/24 15:22 05/19/24 15:22
I&O
05/18/24 05/19/24 05/20/24
06:59 06:59 06:59
Intake Total 1380 / 1380
Output Total 250 / 250 1350 / 1350
Balance -250 / -250 30 / 30
Physical Exam
-
General: Well Developed and No Apparent Distress
HEENT: Normocephalic, Atraumatic and Moist Mucous Membranes
Respiratory: Clear to Auscultation
Cardiac: Regular Rhythm and S1/S2; Negative Murmur, Rub or Gallop
GI: Soft, Nontender, Nondistended and Normal Bowel Sounds; Negative Organomegaly
Rectal: Deferred by Provider
Musculoskeletal: No Clubbing, No Cyanosis and No Edema
Skin: Negative Rash
Neuro: Nonfocal/Grossly Intact
[2024-05-20] MEDS: NSS 1000 IV ×2 (00:16→13:25)
[2024-05-20 03:55] VITALS: BP 116/77
--- NOTE | 2024-05-20 04:17 | PTCARENOTE ---
Pt assessed as per work list flow sheet. Pt appears more interactive with staff this evening. Family stated pt was eating better today. Pt had one incident of copious diarrhea. Inc of bowel. No s/s of distress assessed. Will continue to monitor.
[2024-05-20 07:33] VITALS: BP 122/84
[2024-05-20] MEDS: HEPARIN 5000 UNITS SC (07:34)
[2024-05-20] MEDS: CRESTOR 5 MG PO (07:34)
[2024-05-20] MEDS: SODIUM BICARBONATE 325 MG PO (07:35)
[2024-05-20] MEDS: NORVASC 10 MG PO (07:35)
[2024-05-20 08:33] LABS: Blood Urea Nitrogen 57 mg/dl (9-20); Calcium 7.9 mg/dl (8.4-10.2); Carbon Dioxide 27 mmol/L (22-30); Chloride 103 mmol/L (98-107); Estimated Creatinine Clearance 13 ml/min; Glucose 91 mg/dl (70-99); Potassium 4.8 mmol/L (3.5-5.1); Sodium 136 mmol/L (135-145)
--- NOTE | 2024-05-20 11:20 | W.PN.NEPH.PH ---
Today's Communication / Plan
-
IVF
Assessment/Plan
-
Impression:
Acute kidney injury
CKD stage IV with baseline creatinine of 3
Non-gap metabolic acidosis (AG 12)
Hypertension
Hyperkalemia
Is treated prostate cancer
Anemia
Plan:
I was informed by his son that the patient has a baseline creatinine of 3, which was obtained sometimes within the past year by his order selector that the [facility],I spoke with his order selector yesterday to inform me that his creatinine was
2.4 in April 2023, but that he has not been seen in a year. She also told me that he does have underlying polycystic kidney disease.
The patient now presents with increasing confusion and failure to follow up with acute renal failure with associated hyperkalemia and metabolic acidosis
hold ARB still
continue IVF NSS while in house
follow BMP
ambulation
could follow Cr as outpatient at this time, 2x/week if dc planning
d/w DIL
-
-
Date of Service: May 20, 2024
CC / HPI / ROS
-
Chief Complaint:
JEROMY
CKD 4
History of Present Illness:
Hemodynamically stable
Creatinine down to 4.0 From 6.2
Metabolic acidosis, improved
Hyperkalemia, improved
Na better 136
Review of Systems:
Subjectively nonoliguric
No fevers
no CP/SOB
eating hospital food without issue
Labs
-
Labs:
WBC 7.5 10^3/uL (4.8-10.8) 05/18/24 07:13
RBC 3.97 10^6/uL (4.70-6.10) L 05/18/24 07:13
Hgb 10.3 g/dL (13.0-18.0) L 05/18/24 07:13
Hct 31.5 % (39.0-52.0) L 05/18/24 07:13
Plt Count 496 10^3/uL (130-400) H 05/18/24 07:13
Sodium 136 mmol/L (135-145) 05/20/24 06:52
Potassium 4.8 mmol/L (3.5-5.1) 05/20/24 06:52
Chloride 103 mmol/L (98-107) 05/20/24 06:52
Carbon Dioxide 27 mmol/L (22-30) 05/20/24 06:52
BUN 57 mg/dl (9-20) H 05/20/24 06:52
Creatinine 4.0 mg/dL (0.7-1.3) H 05/20/24 06:52
eGFR 14.60 05/20/24 06:52
Glucose 91 mg/dl (70-99) 05/20/24 06:52
Calcium 7.9 mg/dl (8.4-10.2) L 05/20/24 06:52
Albumin 3.2 g/dl (3.5-5.0) L 05/17/24 11:31
Physical Exam
-
Vital Signs:
Vital Signs
Temp Pulse Resp BP Pulse Ox
98.1 F 104 20 103/68 98
05/20/24 11:04 05/20/24 11:04 05/20/24 11:04 05/20/24 11:04 05/20/24 11:04
Cardiovascular:: Regular rate and rhythm
Respiratory:: Bilateral: Coarse
Lung Excursion:: Normal
Abdomen:: Nontender and Soft
Bowel Sounds:: Normal
Extremity Edema:: None: Bilateral:
[2024-05-20 11:29] VITALS: BP 104/70
--- NOTE | 2024-05-20 13:54 | CM ---
Patient is progressing well in PT, close to baseline.
Plan: Case management will continue to follow and assist with discharge planning. Home with his son.
--- NOTE | 2024-05-20 14:23 | W.DS.TRANS ---
DC Summary - Kennel Worker
-
Discharge Instructions:
Discharge Diagnosis/Procedures IMPRESSION:
Failure to thrive with meniscal oral intake.
Metabolic encephalopathy in the settings of
uremia
Acute kidney injury on CKD stage IV baseline
creatinine 2.4.
Acute on chronic metabolic acidosis with normal
anion gap
Hyperkalemia
Other conditions:
PKD.
Hypertension.
History of prostate carcinoma treated
Anemia of chronic disease/CKD
Diet Regular
Blood Work BMP in one week
Instructions:
Stand-Alone Forms:
Changes to Home Medications: No
Discharge Medications:
DC Medications w/original date entered in [employer]
amlodipine 5 mg tablet 10 mg PO DAILY Blood Pressure 09/13/18
chlorthalidone 25 mg tablet 25 mg PO DAILY Blood Pressure 05/17/24
hydralazine 50 mg tablet 50 mg PO DAILYPRN PRN high bp over 160 05/17/24
rosuvastatin 20 mg tablet (Crestor) 20 mg PO DAILY High Cholesterol 05/17/24
sodium bicarbonate 650 mg tablet 325 mg PO DAILY Electrolyte Repletion 05/17/24
valsartan 320 mg tablet 320 mg PO QPM Blood Pressure 05/17/24
Home Medication Changes
Pending Results: No
[2024-05-20 14:37] VITALS: BP 115/80
== END 2024-05-20 17:28 | disposition home or self-care (01) | DRG 682 ==
LOC: 3 WEST ACU 17:09
PROVIDERS: Emergency Medicine; Specialist; ADMITTING PHYSICIAN Internal Medicine; CONSULT PHYSICIAN Specialist; EMERGENCY PHYSICIAN Student in an Organized Health Care Education/Training Program; FAMILY PHYSICIAN Nurse Practitioner Family
DX: N17.9 Acute kidney failure, unspecified (principal); G93.41 Metabolic encephalopathy; Q61.3 Polycystic kidney, unspecified; E87.21 Acute metabolic acidosis; E87.22 Chronic metabolic acidosis; N18.4 Chronic kidney disease, stage 4 (severe); R62.7 Adult failure to thrive; D63.1 Anemia in chronic kidney disease; E87.5 Hyperkalemia; I10 Essential (primary) hypertension; N40.1 Benign prostatic hyperplasia with lower urinary tract symptoms; R32 Unspecified urinary incontinence; Z63.4 Disappearance and death of family member; Z79.899 Other long term (current) drug therapy; Z85.46 Personal history of malignant neoplasm of prostate
CPT/HCPCS: 76770; 80048; 80053; 81003; 81015; 82570; 84156; 84300; 84484; 85025; 93005; 96360; 97163; 99291

== ENCOUNTER 2024-06-08 10:25 | Emergency (ER) | payer OTHER, SELFPAY ==
[2024-06-08 10:31] VITALS: BP 136/92
--- NOTE | 2024-06-08 11:04 | ED.GENMED ---
History of Present Illness
<Luz Ventura PA-C - Last Filed: 06/08/24 18:06>
General
Chief Complaint: Abnormal Lab Value
Source: patient
Exam Limitations: none
Time Seen by Provider: 06/08/24 10:56
Nursing documentation reviewed up to this point in time: agreed with
History of Present Illness
History of Present Illness:
This is a 78-year-old male with a past medical history of CKD recently diagnosed, BPH, hypertension, who presents emergency department today with concerns of hyperkalemia. He was getting routine blood work done with his primary care provider when
they noted a potassium value of 6.1 yesterday on outpatient blood work and he was advised to report to the emergency department immediately. He notes chronic swelling in his lower extremities but denies any chest pain today, denies shortness of
breath, burning with urination, abdominal pain, nausea, vomiting. He reports his lower extremity swelling is associated with pain with palpation. He has his first appointment with nephrology tomorrow. Of note, he was discharged from here on
05/20/2024 for acute kidney injury secondary to poor oral intake he was also found to be hyperkalemic. He currently takes amlodipine and sodium bicarbonate.
Past History
<Luz Ventura PA-C - Last Filed: 06/08/24 18:06>
Past History
ED Past Medical History: HTN and Other (BPH with acute urinary retention requiring Basurto catheter placement)
ED Past Surgical History: None
Social History
Tobacco: Non-smoker
Alcohol: None
Drug: None
Personal: Other (With family)
Living: with family
Employment: Retired
Family History
Family History: Other (Noncontributory); Negative Diabetes
Review of Systems
<Luz Ventura PA-C - Last Filed: 06/08/24 18:06>
Review of Systems
All Other Systems: ROS reviewed and negative except as documented in HPI and ROS
Phy Exam
<Luz Ventura PA-C - Last Filed: 06/08/24 18:06>
Physical Exam
Physical Exam:
General: Patient is well appearing and in no acute distress; non-toxic
Skin: Warm and dry, no rashes or lesions
Head: Normocephalic, atraumatic
Eyes: Sclera non-icteric. EOMs intact. PERRLA.
Cardiac: Regular rate and rhythm, no murmurs
Peripheral Vascular: Bilateral pedal edema, 2+ DP pulses bilaterally
Pulm: Normal respiratory effort, no wheezes, rales, or rhonchi
Abdomen: No abdominal tenderness to palpation
Neuro: CN II-XII intact, no focal neurologic deficits.
Psychiatric: Appropriate mood and affect.
Course
<Luz Ventura PA-C - Last Filed: 06/08/24 18:06>
Orders/Labs/Results
Orders:
Orders
06/08/24 10:27
Electrocardiogram (*1) Urgent
Reason for Study: Chest Pain
EKG- Treatment ONCE
06/08/24 11:36
CPK [Creatine Phosphokinase] Urgent
Complete Blood Count/With Diff Urgent
Comprehensive Metabolic Panel Urgent
Magnesium Urgent
06/08/24 12:25
Bladder Scan- Treatment ONCE
Sodium Zirconium Cyclosilicate [Lokelma] 10 gram PO NOW STA
06/08/24 12:33
Urinalysis Reflex To Culture Urgent
Date Specimen was Collected: 06/08/24
Time Specimen was Collected: 11:01
Urine Microscopic Reflex Cult Urgent
Urine Culture Urgent
ALESHIA Source: U
Specimen Description:
Date Specimen was Collected: 06/08/24
Time Specimen was Collected: 11:01
Abnormal Lab Results
06/08/24 06/08/24
11:36 12:33
RBC 3.83 L 10^6/uL
(4.70-6.10)
Hgb 10.0 L g/dL
(13.0-18.0)
Hct 31.7 L %
(39.0-52.0)
MCH 26.1 L pg
(27.0-31.0)
MCHC 31.5 L g/dL
(33.0-37.0)
RDW 15.8 H %
(11.5-14.5)
Absolute Monos (auto) 0.8 H 10^3/uL
(0.1-0.6)
Lymphocytes % 15.3 L %
(20.5-51.1)
Monocytes % 9.8 H %
(1.7-9.3)
Potassium 5.5 H mmol/L
(3.5-5.1)
Chloride 108 H mmol/L
(98-107)
BUN 33 H mg/dl
(9-20)
Creatinine 2.8 H mg/dL
(0.7-1.3)
Glucose 111 H mg/dl
(70-99)
Creatine Kinase 43 L U/L
(55-170)
Total Protein 5.8 L g/dl
(6.3-8.2)
Albumin 3.2 L g/dl
(3.5-5.0)
Leukocyte Esterase Rfl 1+ A
(Negative)
Urine Bacteria (Reflex) Few A
(Negative)
Urine Albumin (Reflex) 2+ A
(Neg - Trace)
06/08/24 11:36
06/08/24 11:36
Vital Signs
Initial and Last Documented VS:
Initial Vital Signs
Temp Pulse Resp BP Pulse Ox
98.2 F 77 16 136/92 99
06/08/24 10:31 06/08/24 10:31 06/08/24 10:31 06/08/24 10:31 06/08/24 10:31
Last Documented Vital Signs
Temp Pulse Resp BP Pulse Ox
98.2 F 77 16 136/92 99
06/08/24 10:31 06/08/24 10:31 06/08/24 10:31 06/08/24 10:31 06/08/24 10:31
<Kuldip Scott, DO - Last Filed: 06/08/24 12:34>
Orders/Labs/Results
Orders:
Orders
06/08/24 10:27
Electrocardiogram (*1) Urgent
Reason for Study: Chest Pain
EKG- Treatment ONCE
06/08/24 11:36
CPK [Creatine Phosphokinase] Urgent
Complete Blood Count/With Diff Urgent
Comprehensive Metabolic Panel Urgent
Magnesium Urgent
06/08/24 12:25
Bladder Scan- Treatment ONCE
Sodium Zirconium Cyclosilicate [Lokelma] 10 gram PO NOW STA
06/08/24 12:33
Urinalysis Reflex To Culture Urgent
Date Specimen was Collected: 06/08/24
Time Specimen was Collected: 11:01
Urine Microscopic Reflex Cult Urgent
Urine Culture Urgent
ALESHIA Source: U
Specimen Description:
Date Specimen was Collected: 06/08/24
Time Specimen was Collected: 11:01
Abnormal Lab Results
06/08/24 06/08/24
11:36 12:33
RBC 3.83 L 10^6/uL
(4.70-6.10)
Hgb 10.0 L g/dL
(13.0-18.0)
Hct 31.7 L %
(39.0-52.0)
MCH 26.1 L pg
(27.0-31.0)
MCHC 31.5 L g/dL
(33.0-37.0)
RDW 15.8 H %
(11.5-14.5)
Absolute Monos (auto) 0.8 H 10^3/uL
(0.1-0.6)
Lymphocytes % 15.3 L %
(20.5-51.1)
Monocytes % 9.8 H %
(1.7-9.3)
Potassium 5.5 H mmol/L
(3.5-5.1)
Chloride 108 H mmol/L
(98-107)
BUN 33 H mg/dl
(9-20)
Creatinine 2.8 H mg/dL
(0.7-1.3)
Glucose 111 H mg/dl
(70-99)
Creatine Kinase 43 L U/L
(55-170)
Total Protein 5.8 L g/dl
(6.3-8.2)
Albumin 3.2 L g/dl
(3.5-5.0)
Leukocyte Esterase Rfl 1+ A
(Negative)
Urine Bacteria (Reflex) Few A
(Negative)
Urine Albumin (Reflex) 2+ A
(Neg - Trace)
06/08/24 11:36
06/08/24 11:36
Vital Signs
Initial and Last Documented VS:
Initial Vital Signs
Temp Pulse Resp BP Pulse Ox
98.2 F 77 16 136/92 99
06/08/24 10:31 06/08/24 10:31 06/08/24 10:31 06/08/24 10:31 06/08/24 10:31
Last Documented Vital Signs
Temp Pulse Resp BP Pulse Ox
98.2 F 77 16 136/92 99
06/08/24 10:31 06/08/24 10:31 06/08/24 10:31 06/08/24 10:31 06/08/24 10:31
<Luz Ventura PA-C - Last Filed: 06/08/24 18:06>
MDM/Problems Addressed
Differential Diagnosis Includes:
ddx include acute renal failure, metabolic acidosis, pseudohyperkalemia, rhabdomyolysis,
MDM/Problems Addressed:
78-year-old male presents emergency department today with concerns about patient blood work abnormalities. He was getting routine blood work done with his primary care provider and was found to be hyperkalemic to 6.1, today's 5.5. He does take
sodium bicarb tablets. 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 Case and treatment plan discussed with attending. Patient stable
for discharge.
Chronic conditions affecting care:
HTN, chronic renal disease
<Luz Ventura PA-C - Last Filed: 06/08/24 18:06>
*Pulse Oximetry
Patient hypoxic: no
*EKG
Interpreted by ED Provider?: Yes
EKG Intrepretation Date: 06/08/24
Interpretation: normal
Comparison EKG: changes noted (decreased rate )
Heart Rate: 69
Rate: normal
Rhythm: sinus
[place]: normal axis
Interval: normal interval
QRS Pattern: normal QRS
*Critical Care Note
Total Time (30-74mins, 75-104mins- exclusive of procedures): Not Applicable
Data Reviewed
Review of Other/Old Records Reveals: Records (Reviewed discharge summary from 05/20/2024)
ED Attending Note
<Luz Ventura PA-C - Last Filed: 06/08/24 18:06>
-
Portions of this chart may have been created with voice recognition software.� Occasional wrong word or��sound alike� substitutions may have occurred due to the inherent limitations of voice recognition software.
<Kuldip Scott DO - Last Filed: 06/08/24 12:34>
ED Attending Note
Patient seen and examined by attending physician: Yes
I performed the substantive portion of visit, reviewed & personally made and approve the management plan that is documented in note by myself or LYNDA.: Yes
ED Attending Note:
Seen with PA examined independently 78-year-old male chronic renal insufficiency sent in due to high potassium here is making urine, no EKG changes, has an appointment at [facility] nephrology tomorrow, will give some binding agents, copies of
his labs to follow-up tomorrow with his [employer]
Discharge Plan
Departure
Patient Disposition: Home (Routine Discharge)
Date of Disposition: 06/08/24
Time of Disposition: 13:05
Patient with high blood pressure during this ER visit?: Yes
Condition: Good
Discharge Problem:
Hyperkalemia, Chronic kidney disease
Instructions: Hyperkalemia (DC), BLOOD PRESSURE
Prescriptions:
No Action
amlodipine 5 MG tablet
10 mg PO DAILY
chlorthalidone 25 mg Tablet
25 mg PO DAILY
sodium bicarbonate 650 mg Tablet
325 mg PO DAILY
valsartan 320 mg Tablet
320 mg PO QPM
hydralazine 50 mg Tablet
50 mg PO DAILYPRN PRN (Reason: high bp over 160)
rosuvastatin [Crestor] 20 mg Tablet
20 mg PO DAILY
Referrals:
Adarsh Garcia MD [Family Provider] -
Activity Restrictions/Additional Instructions:
Your renal function today is at baseline.
Your potassium today was 5.5. You were given a dose of Lokelma.
Please follow up with your [employer] fishing [employer] with your scheduled appointment tomorrow.
PLEASE RETURN EMERGENCY DEPARTMENT SHOULD YOU DEVELOP CHEST PAIN, SHORTNESS OF BREATH, LIGHTHEADEDNESS, DIZZINESS, DIFFICULTY AMBULATING, DIFFICULTY SPEAKING, WEAKNESS IN ONE-SIDED BODY VERSUS OTHER, ANY OTHER SIGNS OR SYMPTOMS WORRISOME TO YOU.
Interventions
Interventions:
*Risk Screen - Suicide Last Done: 06/08/24 11:56
*General Assessment Last Done: 06/08/24 11:56
*Neglect/Abuse Screening Last Done: 06/08/24 11:56
*ED- Fall Risk Assessment Last Done: 06/08/24 11:56
*Nursing Disposition Last Done: 06/08/24 13:40
Discharge Date and Time
Discharge Date/Time: 06/08/24 13:40
Print Language: WOLOF
[2024-06-08 11:53] LABS: % Basophils 0.5 % (0-2); % Eosinophils 5.8 % (0-6); % Immature Granulocytes 0.5 % (0-0.5); % Lymphocytes 15.3 % (20.5-51.1); % Monocytes 9.8 % (1.7-9.3); % Neutrophils 68.1 % (42.2-75.2); Absolute Eosinophils 0.4 10^3/uL (0-0.7); Absolute Lymphocytes 1.2 10^3/uL (1.2-3.4); Absolute Monocytes 0.8 10^3/uL (0.1-0.6); Absolute Neutrophils 5.2 10^3/uL (1.4-6.5); Hematocrit 31.7 % (39.0-52.0); Mean Corp Hgb Conc. 31.5 g/dL (33.0-37.0); Mean Corpuscular Hgb 26.1 pg (27.0-31.0); Mean Corpuscular Volume 82.8 fL (80.0-94.0); Mean Platelet Volume 8.6 fL (7.4-10.4); Nucleated Red Blood Cells % 0 % (-); Platelet Count 294 10^3/uL (130-400); Red Blood Cell Count 3.83 10^6/uL (4.70-6.10); Red Cell Dist. Width 15.8 % (11.5-14.5); White Blood Cell Count 7.6 10^3/uL (4.8-10.8)
[2024-06-08 12:11] LABS: ALT (SGPT) 11 U/L (0-50); AST (SGOT) 17 U/L (17-59); Albumin 3.2 g/dl (3.5-5.0); Alkaline Phosphatase 71 U/L (38-126); Blood Urea Nitrogen 33 mg/dl (9-20); Calcium 9.1 mg/dl (8.4-10.2); Carbon Dioxide 22 mmol/L (22-30); Chloride 108 mmol/L (98-107); Creatine Phosphokinase 43 U/L (55-170); Glucose 111 mg/dl (70-99); Magnesium 1.9 mg/dl (1.6-2.3); Potassium 5.5 mmol/L (3.5-5.1); Sodium 136 mmol/L (135-145); Total Bilirubin 0.5 mg/dl (0.2-1.3); Total Protein 5.8 g/dl (6.3-8.2); eGFR 22.39
[2024-06-08] MEDS: LOKELMA 10 GRAM PO (12:31)
[2024-06-08 12:50] LABS: Urine Albumin 2+ (Neg - Trace); Urine Bilirubin Negative (Negative); Urine Character Clear (Clear); Urine Color Yellow; Urine Glucose Negative (Negative); Urine Ketone Negative (Negative); Urine Leukocyte 1+ (Negative); Urine Nitrite Negative (Negative); Urine Occult Blood Negative (Negative); Urine Urobilinogen Negative (Neg - 1+)
[2024-06-08 13:12] LABS: Urine Red Blood Cell 0-2 /HPF (0-2)
[2024-06-08 13:13] LABS: Urine Bacteria Few (Negative)
== END 2024-06-08 13:40 | disposition home or self-care (01) ==
LOC: EMR 10:25
PROVIDERS: Physician Assistant; EMERGENCY PHYSICIAN Emergency Medicine; FAMILY PHYSICIAN Family Medicine
DX: I12.9 Hypertensive chronic kidney disease with stage 1 through stage 4 chronic kidney disease, or unspecified chronic kidney disease (principal); N18.9 Chronic kidney disease, unspecified; E87.5 Hyperkalemia; M79.89 Other specified soft tissue disorders; N40.1 Benign prostatic hyperplasia with lower urinary tract symptoms; R33.8 Other retention of urine; Z79.899 Other long term (current) drug therapy
CPT/HCPCS: 99283; 80053; 81003; 81015; 82550; 83735; 85025; 87077; 87086; 93005

== ENCOUNTER 2024-08-13 21:44 | Inpatient (IN) | payer OTHER, SELFPAY ==
[2024-08-13] VITALS (16 sets, daily range): BP systolic 121–210; BP diastolic 79–125; BMI 27.5
--- NOTE | 2024-08-13 18:36 | EDRN ---
Александр Chamberlain PA in room w/pt.
--- NOTE | 2024-08-13 18:42 | ED.GENMED ---
History of Present Illness
General
Chief Complaint: Blood Pressure Problem
Source: patient, records and family
Time Seen by Provider: 08/13/24 18:34
History of Present Illness
History of Present Illness:
78-year-old male with past medical history of hypertension, CKD, BPH presenting to the emergency department for evaluation of generally feeling unwell for the last few days, states has had some lower extremity weakness with ambulatory dysfunction,
lightheadedness and vertiginous-like symptoms, headache. He took his blood pressure at home today and noticed the systolic was greater than 200 and diastolic greater than 100 prompting son to bring the patient to the ER for further evaluation.
Patient states the lightheadedness/dizziness and will be ambulating is what ultimately brought him to the ER. He did not attempt any medications prior to arrival. Patient does state that he was taken off of his antihypertensive medications due to
polycystic kidney disease, his discharge summary from April of this year showed that he was supposed to be taking amlodipine 10 mg once daily, hydralazine 50 mg as needed for blood pressures greater than 160 and valsartan 320 mg at nighttime. It
is unclear as to if patient should still be on these medications.
Past History
Past History
ED Past Medical History: HTN, Renal failure and Other (BPH with acute urinary retention requiring Basurto catheter placement)
ED Past Surgical History: Urological
Social History
Tobacco: Non-smoker
Alcohol: None
Drug: None
Personal: (With family)
Living: with family
Employment: Retired
Family History
Family History: Other (Noncontributory); Negative Diabetes
Review of Systems
Review of Systems
All Other Systems: ROS reviewed and negative except as documented in HPI and ROS
Phy Exam
Physical Exam
Physical Exam:
GENERAL: Alert , in no apparent distress
VITAL SIGNS: Blood pressure 186/113 at time of my exam
EYE: pupils equal and reactive, 3 mm bilateral
NECK: Supple, no significant adenopathy.
ENT: o/p clr, mmm.
CARDIAC: Regular rate and rhythm .
LUNGS: Clear breath sounds bilaterally, no acute respiratory distress, no wheezes/rales/rhonchi
ABDOMEN: Soft, without focal tenderness, no r/g, no cvat
NEUROLOGICAL: Alert and oriented, no focal neuro deficits, no ataxia, moves all extremities
SKIN: Warm and dry, skin intact.
MUSCULOSKELETAL: No edema, well perfused.
PSYCH: Normal and appropriate interaction.
Scores
Heart Failure Risk
Heart Failure Risk Score: Not Applicable
Heart Score for Chest Pain Patients
STEMI patient?: Not applicable
Withdrawal Assessment of Alcohol
Withdrawal Assessment Completed?: Not applicable
Course
Orders/Labs/Results
Orders:
Orders
08/13/24 17:48
Electrocardiogram (*1) Urgent
Reason for Study: Hypertension, Benign
EKG- Treatment ONCE
08/13/24 18:41
CT Head W/o Iv Contrast Urgent
Comment:
Reason For Exam: HTN, weakness
08/13/24 19:01
Complete Blood Count/With Diff Urgent
Comprehensive Metabolic Panel Urgent
Magnesium Urgent
Troponin I Urgent
08/13/24 19:25
Urinalysis Reflex To Culture Urgent
Date Specimen was Collected: 08/13/24
Time Specimen was Collected: 19:19
Urine Microscopic Reflex Cult Urgent
Urine Culture Urgent
ALESHIA Source: U
Specimen Description:
Date Specimen was Collected: 08/13/24
Time Specimen was Collected: 19:19
08/13/24 20:30
Nicardipine 40 mg/200 ml [Cardene] 40 mg in 200 ml IV PER PROTOCOL
Initial dose in mg/hr, then titrate:: 5
Titrate to keep:: Other
Titrate to keep other:: BP 160 systolically
Titrate by mg/hr:: 2.5 mg/hr
Frequency of titrations (minutes):: 5-15 minutes
Maximum dose in mg/hr:: 15
Begin to taper infusion when:: Remained at goal for 2hrs
Taper by mg/hr:: 2.5 mg/hr
Frequency of taper (minutes) if patient maintains goal:: every 15-30 minutes
Taper to off?: Yes
If infusion off & no longer maintaining goal:: Contact Provider
Abnormal Lab Results
08/13/24 08/13/24
19: 19:25
RBC 4.04 L 10^6/uL
(4.70-6.10)
Hgb 10.8 L g/dL
(13.0-18.0)
Hct 34.3 L %
(39.0-52.0)
MCH 26.7 L pg
(27.0-31.0)
MCHC 31.5 L g/dL
(33.0-37.0)
RDW 15.0 H %
(11.5-14.5)
Potassium 5.2 H mmol/L
(3.5-5.1)
Chloride 111 H mmol/L
(98-107)
Carbon Dioxide 21 L mmol/L
(22-30)
BUN 37 H mg/dl
(9-20)
Creatinine 2.9 H mg/dL
(0.7-1.3)
Total Protein 5.9 L g/dl
(6.3-8.2)
Albumin 3.4 L g/dl
(3.5-5.0)
Leukocyte Esterase Rfl 2+ A
(Negative)
Urine WBC (Reflex) 30-40 A /HPF
(0-5)
Urine Bacteria (Reflex) Few A
(Negative)
Urine Albumin (Reflex) 3+ A
(Neg - Trace)
08/13/24 19:
08/13/24 19:01
Vital Signs
Initial and Last Documented VS:
Initial Vital Signs
Temp Pulse Resp BP Pulse Ox
98.1 F 75 15 195/125 100
08/13/24 17:54 08/13/24 17:54 08/13/24 17:54 08/13/24 17:54 08/13/24 17:54
Last Documented Vital Signs
Temp Pulse Resp BP Pulse Ox
98.1 F 72 10 153/89 98
08/13/24 17:54 08/13/24 20:45 08/13/24 20:45 08/13/24 20:51 08/13/24 20:45
MDM/Problems Addressed
Differential Diagnosis Includes:
Hypertensive urgency/emergency, CVA, uncontrolled hypertension, medication noncompliance, electrolyte derangement, worsening renal dysfunction
MDM/Problems Addressed:
78-year-old male presenting to the ER for evaluation of generally feeling unwell, headache, lightheadedness/dizziness, noticed hypertension at home. On arrival patient blood pressure 195/125, at time of my exam patient still significantly
hypertensive. Patient and son believe he was taken off of his medications, unclear as to if patient should still be taking these. Will obtain labs, CT of the head, anticipate ordering medications for blood pressure. Patient may require admission
for hypertensive urgency/emergency.
Chronic conditions affecting care: HTN
Acute Exacerbation and/or Progression of Chronic Illness: HTN
*Radiology
Radiology exam reviewed: radiology read reviewed
*Pulse Oximetry
Patient hypoxic: no
*EKG
Heart Rate: 73
Rate: normal
Rhythm: sinus
[place]: left axis deviation
Ischemia: no ischemia
*Barrel Drum Cutter Interpretation
Rate: normal
Rhythm: sinus
*Critical Care Note
Total Time (30-74mins, 75-104mins- exclusive of procedures): 30
comment:
Critical care statement: A total of 30 minutes of critical care time was provided for this patient. This includes management of unstable vital signs, evaluation of the patient at bedside, reviewing the patient's pertinent medical records, discussion
with consultants, review of old EKGs and review of pertinent medical records. This time with separate from time utilized to perform the aforementioned documented procedures
Data Reviewed
Review of Other/Old Records Reveals: Labs, Records and Discharge Summary
Comment
Comment:
8:20 PM: Patient with multiple significantly elevated blood pressures with his last being 210/118. Given his presenting symptoms and continuously elevated blood pressure decision was made to initiate patient on a Cardene drip. Awaiting CT imaging
results. Patient to be admitted.
Patient Management
Discussion with other providers: Hospitalist
Escalation/DeEscalation of care consider admission/obs:
CT scan shows possible normal pressure hydrocephalus. This could potentially be cause for patient's leg weakness. Blood pressure improved on Cardene. Patient still remains somewhat symptomatic however. Plan to admit for hypertensive urgency and
potentially further evaluation of possible normal pressure hydrocephalus.
ED Attending Note
-
Portions of this chart may have been created with voice recognition software.� Occasional wrong word or��sound alike� substitutions may have occurred due to the inherent limitations of voice recognition software.
Discharge Plan
Departure
Patient Disposition: Admit
Date of Disposition: 08/13/24
Time of Disposition: 20:51
Presentation/result/management discussed w/ accepting MD/DO: Hospitalist
Discharge Problem:
Hypertensive urgency, CKD (chronic kidney disease)
Prescriptions:
No Action
amlodipine 5 MG tablet
10 mg PO DAILY
chlorthalidone 25 mg Tablet
25 mg PO DAILY
sodium bicarbonate 650 mg Tablet
325 mg PO DAILY
valsartan 320 mg Tablet
320 mg PO QPM
hydralazine 50 mg Tablet
50 mg PO DAILYPRN PRN (Reason: high bp over 160)
rosuvastatin [Crestor] 20 mg Tablet
20 mg PO DAILY
Referrals:
Adarsh Garcia MD [Family Provider] -
Interventions
Interventions:
*Risk Screen - Suicide Last Done: 08/13/24 17:54
*General Assessment Last Done: 08/13/24 17:54
*Neglect/Abuse Screening Last Done: 08/13/24 17:54
*ED- Fall Risk Assessment Last Done: 08/13/24 18:53
*ED COVID-19 Vaccine History Last Done: 08/13/24 18:53
ED- Cardiac Assessment Last Done: 08/13/24 19:48
ED- Neurological Assessment Last Done: 08/13/24 19:48
ED- Pulmonary Assessment Last Done: 08/13/24 19:48
Discharge Date and Time
Print Language: [place]BI[place]
[2024-08-13 19:08] LABS: % Basophils 0.6 % (0-2); % Eosinophils 5.9 % (0-6); % Immature Granulocytes 0.3 % (0-0.5); % Lymphocytes 22.7 % (20.5-51.1); % Monocytes 9.2 % (1.7-9.3); % Neutrophils 61.3 % (42.2-75.2); Absolute Eosinophils 0.4 10^3/uL (0-0.7); Absolute Lymphocytes 1.5 10^3/uL (1.2-3.4); Absolute Monocytes 0.6 10^3/uL (0.1-0.6); Absolute Neutrophils 4.1 10^3/uL (1.4-6.5); Hematocrit 34.3 % (39.0-52.0); Hemoglobin 10.8 g/dL (13.0-18.0); Mean Corp Hgb Conc. 31.5 g/dL (33.0-37.0); Mean Corpuscular Hgb 26.7 pg (27.0-31.0); Mean Corpuscular Volume 84.9 fL (80.0-94.0); Mean Platelet Volume 8.8 fL (7.4-10.4); Nucleated Red Blood Cells % 0 % (-); Platelet Count 245 10^3/uL (130-400); Red Blood Cell Count 4.04 10^6/uL (4.70-6.10); White Blood Cell Count 6.7 10^3/uL (4.8-10.8)
[2024-08-13 19:21] LABS: ALT (SGPT) 12 U/L (0-50); AST (SGOT) 18 U/L (17-59); Albumin 3.4 g/dl (3.5-5.0); Alkaline Phosphatase 68 U/L (38-126); Blood Urea Nitrogen 37 mg/dl (9-20); Calcium 8.7 mg/dl (8.4-10.2); Carbon Dioxide 21 mmol/L (22-30); Chloride 111 mmol/L (98-107); Estimated Creatinine Clearance 19 ml/min; Glucose 96 mg/dl (70-99); Magnesium 2.1 mg/dl (1.6-2.3); Potassium 5.2 mmol/L (3.5-5.1); Sodium 138 mmol/L (135-145); Total Bilirubin 0.4 mg/dl (0.2-1.3); Total Protein 5.9 g/dl (6.3-8.2); eGFR 21.47
[2024-08-13 19:32] LABS: Urine Albumin 3+ (Neg - Trace); Urine Bilirubin Negative (Negative); Urine Character Clear (Clear); Urine Color Yellow; Urine Glucose Negative (Negative); Urine Ketone Negative (Negative); Urine Leukocyte 2+ (Negative); Urine Nitrite Negative (Negative); Urine Occult Blood Negative (Negative); Urine Urobilinogen Negative (Neg - 1+)
[2024-08-13 19:34] LABS: Troponin I 0.021 ng/ml
[2024-08-13 20:00] LABS: Urine Bacteria Few (Negative); Urine Red Blood Cell 0-2 /HPF (0-2); Urine Squamous Cell >30 /LPF (Few); Urine White Cell 30-40 /HPF (0-5)
[2024-08-13] MEDS: CARDENE 200 IV (20:27)
--- NOTE | 2024-08-13 21:11 | W.PN.UPDATE ---
Addendum entered and electronically signed by Mckay Ceballos MD 08/13/24 22:37:
Abnormal UA with pyuria but > 30 Epi
- repeat UA
Original Note:
Update Note
Progress Note Update
This note serves as an addendum to the H&P by boat master LYNDA Melany VARELA
HPI
78M HX HTN, PCK, CKD4, baseline Cr 3 , anemia of Chr dz, trested seen at ER:
- for evaluation of generally feeling unwell for the last few days
- some lower extremity weakness with ambulatory dysfunction
- lightheadedness and vertiginous-like symptoms, headache.
- At home noted SBP > 200 and DBP > 100 prompting son to bring the patient to the ER for further evaluation.
- Patient does state that he was taken off of his antihypertensive medications due to polycystic kidney disease
- DC summary from April 2024 showed that he was DC on amlodipine 10 mg once daily, hydralazine 50 mg as needed and valsartan 320 mg at nighttime.
- unclear if patient should still be on above Rx or what not !
05/20/24 DC Medications w/original date entered in [facility] [employer] [facility]
amlodipine 5 mg tablet 10 mg PO DAILY Blood Pressure 09/13/18
chlorthalidone 25 mg tablet 25 mg PO DAILY Blood Pressure 05/17/24
hydralazine 50 mg tablet 50 mg PO DAILY PRN PRN high bp over 160 05/17/24
rosuvastatin 20 mg tablet (Crestor) 20 mg PO DAILY High Cholesterol 05/17/24
sodium bicarbonate 650 mg tablet 325 mg PO DAILY Electrolyte Repletion 05/17/24
valsartan 320 mg tablet 320 mg PO QPM Blood Pressure 05/17/24
Vital Signs
Temp Pulse Resp BP Pulse Ox
98.1 F 75 13 150/88 98
08/13/24 17:54 08/13/24 21:00 08/13/24 21:00 08/13/24 21:00 08/13/24 21:00
Selected Entries
08/13/24
19:00 08/13/24
20:07 08/13/24
21:00
Blood pressure 184/105 210/118 150/88
PE
Gen: NAD
HEENT: anicteric
Neck: supple
Lungs: CTA
Cor: RRR S1 S2
Abdomen: large and distended
PROGRESS MAN: AAO3
MS: no peripheral edema
Psych: nl mood and affect
Laboratory Tests
06/08/24 08/13/24 08/13/24
11:36 19:01 19:25
Hgb 10.0 L 10.8 L
MCV 82.8 84.9
Plt Count 294 245
Potassium 5.5 H 5.2 H
Chloride 108 H 111 H
Carbon Dioxide 22 21 L
Creatinine 2.8 H 2.9 H
eGFR 22.39 21.47
Troponin I 0.021
Leukocyte Esterase Rfl 2+ A
Urine RBC 0-2
Urine WBC (Reflex) 30-40 A
Ur Squamous Epith Cells >30
HCT
- Atrophy which appears greater involving the frontal and temporal lobes.
- Ventricular dilation, which appears slightly greater than the degree of atrophy.
- The temporal horn of the left lateral ventricle is especially dilated.
- Findings suggest the possibility of normal pressure hydrocephalus and please correlate clinically.
Last hospitalist admission: 05/17/2024 - 05/20/2024
DC DX:
1. Metabolic encephalopathy in the setting of uremia.
2. Failure to thrive at home with miniscule oral intake, likely secondary to grieving process.
3. Acute kidney injury on chronic kidney disease, stage 4, withbaseline creatinine around 2-2.5.
4. Acute on chronic metabolic acidosis with normal anion gap.
5. Hyperkalemia.
ASSESSMENT & PLAN
HTN urgency
HX HTN: secondary HTN due to PCK vs. essential HTN
- uncertain compliance with anti HTN meds
- Improved BP control with Cardene gtt
- Only on chlorthalidone as OP but will hold while on Cardene gtt
- No longer on losartan due to CKD4 and hyperkalemia
- on Cardene gtt - titrate to keep SBP 140- 160
- ICU consult
- Renal consult
HX PKD
HX CKD 4 with baseline Cr 3 : stable
Associated stable hyperkalemia ; mild
Associated Non-gap metabolic acidosis (AG 12)
Associated ACDz: stable Hgb in hi 10s
- on SPUD DRILLER Bicarb 325mg daily
- Renal consult
HCT suggest NPH
- No prior HCT at radiology to compare
- associated lower extremity weakness with ambulatory dysfunction
- Neuro consult
HX treated prostate carcinoma
DVT Px: SQH
Full code
ICU
Total Critical Care Time__55___ minutes.
I was immediately available to the patient and staff. I personally examined, reviewed labs, diagnostic images/reports, interpretations, treatment plans, discussed patient care with other providers and family or caregivers (if patient is unable to
make decisions), entered orders as appropriate and documented the medical record.
--- NOTE | 2024-08-13 21:29 | HPS.HSE ---
Family Physician
-
Family Physician: Adarsh Garcia
Chief Complaint
-
Headache and Elevated Blood Pressure
History of Present Illness
Patient is a 78 y/o male past medical history of CKD IV secondary to Polycystic Kidney Disease who presents with headache and elevated blood pressure. Additional history is obtained from patient's family at bedside. Patient has been feeling
unwell for the past few days. He has a variety of complaints including generalized weakness with ambulatory dysfunction, lightheadedness / dizziness, and headache. Patient monitors his blood pressure at home which was noted to be a little high
over the past few days, but today very elevated with SBP >200 prompting family to bring him to the emergency department.
Medical History
Past Medical History
Past Medical History: Reports Other
Additional Past Medical History:
Chronic Kidney Disease Stage IV
Polycystic Kidney Disease
Chronic Metabolic Acidosis
Prostate Cancer
Past Surgical History: Reports Other
Additional Past Surgical History:
Prostatectomy
Social History
Tobacco: Non-smoker
Alcohol: None
Personal:
Living: With Family
Family History
Family History: Not pertinent
Allergies / Home Medications
Allergies reflects when Allergies were last updated in [facility].
Home Medications with original date entered in [facility]
Allergy/Medication List:
Allergies
Allergy/AdvReac Type Severity Reaction Status Date / Time
No Known Allergies Allergy Verified 06/08/24 10:34
Home Medications
sodium bicarbonate 650 mg tablet 650 mg PO BID Electrolyte Repletion 05/17/24
chlorthalidone 25 mg tablet 25 mg PO DAILY 08/13/24
Review of Systems
-
Unable to obtain full review of systems at this time due to: Language Barrier
Physical Exam
Vital Signs
Vital Signs
Temp Pulse Resp BP Pulse Ox
98.1 F 74 18 163/96 98
08/13/24 17:54 08/13/24 21:15 08/13/24 21:15 08/13/24 21:15 08/13/24 21:15
Physical Exam
General: Comfortable and Conversant
HEENT: Anicteric and Moist mucous membranes
Respiratory: Clear and Non Labored Respirations
Cardiac: S1/S2 and Regular Rhythm
GI: Soft and Non Tender
Rectal: Deferred by Provider
Musculoskeletal: No Clubbing, No Cyanosis and No Edema
Skin: Warm and Dry
Neuro: Awake, Alert, Oriented and Nonfocal/grossly intact
Psych: Calm
Laboratory Results
-
08/13/24 19:01
08/13/24 19:01
Laboratory Results
Total Bilirubin 0.4 mg/dl (0.2-1.3) 08/13/24 19:01
AST 18 U/L (17-59) 08/13/24 19:01
ALT 12 U/L (0-50) 08/13/24 19:01
Alkaline Phosphatase 68 U/L (38-126) 08/13/24 19:01
Troponin I 0.021 ng/ml 08/13/24 19:01
Data Reviewed
-
CT Scan: Report Reviewed by me
Lab Data: Labs Reviewed by me
Old Records: Reviewed
Impression/Plan
-
Hypertensive Urgency
-Admit to ICU
-Continue nicardipine drip
-Valsartan stopped previously due to hyperkalemia
-Patient previously on amlodipine but unclear reason why it was stopped
-Hold chlorthalidone while on nicardipine drip
-Consult Nephrology to help with BP management
-Check TSH
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
-Consult Neurology
CKD IV with Chronic Metabolic Acidosis secondary to Polycystic Kidney Disease
-Continue sodium bicarbonate
Hyperkalemia, mild
-Continue low potassium diet
-Recheck labs in AM
DVT proph: SC Heparin
Code Status: Full Code
[2024-08-13 22:24] LABS: TSH Reflex To Free T4 2.56 uIU/ml (0.47-4.68)
[2024-08-13 22:38] LABS: Glucose - Point of Care 114 mg/dl (70-99)
--- NOTE | 2024-08-13 23:35 | PTCARENOTE ---
Received pt from ED to ICU 3365 via stretcher. Pt stood and transferred to bed with standby assist. Family reports he has been a little more unsteady than normal and fell a few days ago at home. Pt. AAOx3, without complaints. SR on tele, HR 70-80s.
On cardene gtt at 2.5mg/hr. BP 150s/90s. Goal SBP 140-160 per orders. Pt reports his ankles are more swollen than usual - trace B/L LE edema. + pulses. Afebrile. On RA. R lung base with fine crackles but otherwise lungs CTA. + bowel sounds. Voiding
clear yellow urine in urinal. Call florentino in reach.
[2024-08-14] VITALS (51 sets, daily range): BP systolic 113–200; BP diastolic 63–111; PULSE 87–89; O2SAT 96; BMI 24.1
[2024-08-14 00:23] LABS: Urine Albumin 2+ (Neg - Trace); Urine Bilirubin Negative (Negative); Urine Character Clear (Clear); Urine Glucose Negative (Negative); Urine Ketone Negative (Negative); Urine Leukocyte Negative (Negative); Urine Nitrite Negative (Negative); Urine Occult Blood Negative (Negative); Urine Specific Gravity 1.015 (<1.030); Urine Urobilinogen Negative (Neg - 1+)
[2024-08-14 00:27] LABS: Urine Color Straw
[2024-08-14 00:52] LABS: Urine Squamous Cell >30 /LPF (Few)
[2024-08-14 00:54] LABS: Urine Red Blood Cell 0-2 /HPF (0-2)
[2024-08-14] MEDS: HEPARIN 5000 UNITS SC ×3 (01:15→16:33)
--- NOTE | 2024-08-14 01:19 | PTCARENOTE ---
Wheel Polisher ipad used for most communication with pt.
Pt. complaining of his L ankle and foot having some sensation loss. Reports it started about 1.5 hours ago. SPARE PARTS CLERK notified. No new orders at this time. Informed pt. that neurology has been consulted. Pt. able to bear weight. No increased weakness.
[2024-08-14 04:45] LABS: Hematocrit 33.9 % (39.0-52.0); Hemoglobin 11.1 g/dL (13.0-18.0); Mean Corp Hgb Conc. 32.7 g/dL (33.0-37.0); Mean Corpuscular Hgb 27.1 pg (27.0-31.0); Mean Corpuscular Volume 82.7 fL (80.0-94.0); Mean Platelet Volume 8.6 fL (7.4-10.4); Platelet Count 239 10^3/uL (130-400); Red Cell Dist. Width 14.9 % (11.5-14.5); White Blood Cell Count 6.7 10^3/uL (4.8-10.8)
[2024-08-14 04:54] LABS: PT 12.5 Sec (11.4-14.6)
[2024-08-14 04:55] LABS: APTT 31.3 Sec (23.4-35.0)
[2024-08-14 04:59] LABS: Blood Urea Nitrogen 36 mg/dl (9-20); Calcium 8.8 mg/dl (8.4-10.2); Carbon Dioxide 21 mmol/L (22-30); Chloride 115 mmol/L (98-107); Estimated Creatinine Clearance 20 ml/min; Glucose 96 mg/dl (70-99); Magnesium 2.2 mg/dl (1.6-2.3); Potassium 5.5 mmol/L (3.5-5.1); Sodium 142 mmol/L (135-145); eGFR 22.39
[2024-08-14 05:55] LABS: Hepatitis C Antibody Negative (Negative)
--- NOTE | 2024-08-14 07:01 | CON.INTV ---
Consultation
Consultation Request
Date/Time Consultation Requested: 08/13/2024
Date/Time Consultation Performed: 08/14/2024
Requesting Provider: Linda Powell
Performing Provider: Hesham Forbes
Reason for Consultation: Headache
Medical History
-
Chief Complaint: Headache
History of Present Illness:
Patient is a 78-year-old gentleman with known history of polycystic kidney disease, who presented to the hospital with significantly elevated blood pressure as well as headache. Patient reportedly has been feeling poorly for the last few days.
Blood pressure is being monitored at home and has been lately noted to be higher. In the emergency room systolic blood pressure was noted to be more than 200. Patient was admitted to the ICU and started on nicardipine infusion for blood pressure
control in view of hypertensive urgency. Senior Net Developer consult was requested for further input.
Past Medical History: Reports Other
Additional Past Medical History:
Chronic Kidney Disease Stage IV
Polycystic Kidney Disease
Chronic Metabolic Acidosis
Prostate Cancer
Past Surgical History: Reports Other
Additional Past Surgical History:
Prostatectomy
Social History
Tobacco: Non-smoker
Alcohol: None
Personal:
Living: With Family
Family History
Family History: Not pertinent
Allergies / Home Medications
Allergies
Allergy/AdvReac Type Severity Reaction Status Date / Time
No Known Allergies Allergy Verified 06/08/24 10:34
Home Medications
�Medication �Instructions �Recorded �Confirmed �Last Taken �Type
sodium bicarbonate 650 mg tablet 650 mg PO BID Electrolyte Repletion 05/17/24 08/13/24 05/17/24 History
chlorthalidone 25 mg tablet 25 mg PO DAILY 08/13/24 08/13/24 Unknown History
Review of Systems
-
Hematologic/Lymphatic: Other (All 14 systems reviewed and negative except as stated above in the history of present illness.)
Vitals / Labs / Diagnostic Testing
Vital Signs
Temp Pulse Resp BP Pulse Ox
98 F 104 22 131/79 96
08/13/24 23:00 08/14/24 06:15 08/14/24 06:15 08/14/24 06:00 08/14/24 06:15
Lab Data
08/14/24 04:35
08/14/24 04:35
Laboratory Results
08/13/24 08/14/24
22:58 04:35
PT Cancelled 12.5
INR Cancelled 0.90
APTT Cancelled 31.3
Diagnostic Testing:
Physical Exam
-
HEENT: Normocephalic
Cardiovascular: S1/S2
Respiratory: Clear and Non-Labored Respirations
GI: Soft and Non Distended
Neurology: Awake, Alert and Oriented
Skin: Warm
General: Comfortable
Assessment
-
#1. Hypertensive urgency.
- Improving. Low-dose Cardene
- Will transition to oral on antihypertensives and wean off Cardene as tolerated. Prior history of pedal edema with amlodipine hence it was discontinued. At home patient takes chlorthalidone. Valsartan in the past was discontinued in view of
acute kidney injury earlier this year. Await further recommendation from nephrology service.
- CT head without any evidence of intracranial hemorrhage
- ? Age-related atrophy with ventricular enlargement versus underlying NPH. Neurology consult. Patient reports generalized weakness and difficulty walking however no incontinence reported. PT/OT eval.
#2. Chronic kidney disease stage IV, history of polycystic kidney disease
- Creatinine is 2.8 today, appears to be at baseline.
- Patient had episode of JEROMY in April 2024 where creatinine peaked at 6.2 subsequently improved
- Continue sodium bicarbonate 650 mg p.o. twice daily for chronic metabolic acidosis related to CKD
- Nephrology consult
#3. H/o Prostate cancer
DVT prophylaxis with subcu heparin.
Critical Care time 48 mins -- The patient is admitted for acute critical illness for the treatment of vital organ failure and/or prevention of further life-threatening conditions. Total care includes time spent in review of history, physical exam,
medications, hemodynamic/ventilator parameters, laboratory data, imaging and discussion with house staff, pharmacy, respiratory therapy, airfield operations specialist, and nursing.
Data:
CT Head 07/2024: Atrophy which appears greater involving the frontal and temporal lobes.
Ventricular dilation, which appears slightly greater than the degree of atrophy. The temporal horn of the left lateral ventricle is especially dilated.
Findings suggest the possibility of normal pressure hydrocephalus and please correlate clinically.
CXR 07/2024: Unremarkable
Renal US 04/2024: Innumerable bilateral renal cysts again seen.
No findings to suggest renal collecting system dilatation bilaterally.
Virtually empty urinary bladder, limited.
--- NOTE | 2024-08-14 07:27 | W.PN.HOSP.TC ---
Today's Communication/Plan
-
See plan
Assessment / Plan
Assessment / Plan
Physical Exam
General: Comfortable and Conversant
HEENT: Anicteric and Moist mucous membranes
Respiratory: Clear and Non Labored Respirations
Cardiac: S1/S2 and Regular Rhythm
GI: Soft and Non Tender
Rectal: Deferred by Provider
Musculoskeletal: No Clubbing, No Cyanosis and No Edema
Skin: Warm and Dry
Neuro: Awake, Alert, Oriented and Nonfocal/grossly intact
Psych: Calm
Assessment/Plan
78 y/o male past medical history of CKD IV secondary to Polycystic Kidney Disease who presents with headache and elevated blood pressure. Additional history is obtained from patient's family at bedside. Patient has been feeling unwell for the
past few days. He has a variety of complaints including generalized weakness with ambulatory dysfunction, lightheadedness / dizziness, and headache. Patient monitors his blood pressure at home which was noted to be a little high over the past few
days, but today very elevated with SBP >200 prompting family to bring him to the emergency department.
Hypertensive Urgency
-Admitted to ICU
-Continue nicardipine drip and wean as tolerated
-Valsartan stopped previously due to hyperkalemia and JEROMY earlier this year
-Patient previously on amlodipine was stopped due to prior history of pedal edema with it
-Resume chlorthalidone (patient takes this at home)
-Start new medication Procardia 30 mg
-Nephrology consulted at the time of admission, to help with BP management
Headache -- secondary to accelerated hypertension
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
Generalized weakness
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
-Check AChR binding ab, SPEP/immunofix, outpatient EMG
CKD IV with Chronic Metabolic Acidosis secondary to Polycystic Kidney Disease
-Continue sodium bicarbonate
- Creatinine is 2.8, appears to be at baseline.
- Patient had episode of JEROMY in April 2024 where creatinine peaked at 6.2 subsequently improved
- Continue sodium bicarbonate 650 mg p.o. twice daily for chronic metabolic acidosis related to CKD
- Nephrology consulted
Suspected Moderate Dementia
- Reports of memory loss
Hyperkalemia, mild
-Continue low potassium diet
-Recheck labs in AM
DVT proph: SC Heparin
Code Status: Full Code
Anticipated Discharge: > 48 hours
Subjective/Interval History
-
Date of Service: August 14, 2024
Patient was seen and examined. He was lying comfortably in bed and denied any new symptoms or complaints.
Objective Data
-
Labs:
Laboratory Results
08/13/24 08/14/24
22:58 04:35
WBC 6.7
Hgb 11.1 L
Hct 33.9 L
Plt Count 239
PT Cancelled 12.5
INR Cancelled 0.90
APTT Cancelled 31.3
Sodium 142
Potassium 5.5 H
Chloride 115 H
Carbon Dioxide 21 L
BUN 36 H
Creatinine 2.8 H
Glucose 96
Calcium 8.8
Vital Signs:
Vital Signs
Temp Pulse Resp BP Pulse Ox
98 F 104 22 131/79 96
08/13/24 23:00 08/14/24 06:15 08/14/24 06:15 08/14/24 06:00 08/14/24 06:15
I&O
08/13/24 08/14/24 08/15/24
06:59 06:59 06:59
Intake Total 25.0 / 25.0
Output Total 600 / 600
Balance -575.0 / -575.0
--- NOTE | 2024-08-14 08:30 | PTCARENOTE ---
Received pt @ change of shift. Pt. AAOx3, forgetful @ x's; primary language is david and pan dumper utilized as needed. C/O mild h/a. SB- SR on monitor. Cardene gtt restarted d/t elevated SBP- see flow sheet. Denies dizziness/lightheadedness.
SpO2 95% on RA. +BS, tolerating diet. Cont b/b. Skin c/d/i. Bedrest while BP critically elevated. PIV's patent, c/d/i. Instructed on how to report care concerns and call florentino in reach.
[2024-08-14] MEDS: SODIUM BICARBONATE 650 MG PO ×2 (08:57→19:22)
--- NOTE | 2024-08-14 10:07 | CM ---
Patient seen at bedside in ICU with patient son. Patient son stated that patient may agree to having VN at home but he would discuss with patient. Patient PCP is Dr. Garcia and he uses the [facility] in [place]. Patient has been living with his son for
the last 5 years. patient recently . Patient was traveling back and forth to [place]. Patient son plan is for patient to return home with VN if needed and will discuss with patient and update CM following discussion with CM.
Plan; home with VN pending physician assessment/therapy recommendations
--- NOTE | 2024-08-14 10:28 | CON.NEURO ---
Neuro Assessment/Plan
Assessment
CK 43,
B12 level 348 (01/2023)
Head CT imgs and rept rev'd, moderate diffuse atrophy agree slightly more ventricular dilation than sulcal atrophy
Headache appears due to accelerated HTN, improving with blood pressure
I believe NPH to be unlikely with this head CT showing slightly more atrophy, and history/exam more of generalized weakness than balance/magnetic gait as would be expected in NPH; i could not justify an LP in this situation.
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
memory loss, level of functioning would be consistent with moderate degree of dementia
above discussed with patient's son
Plan
AChR binding ab, SPEP/immunofix, outpatient EMG
Consultation
Order
Date of Consultation: 08/14/24
Requesting Provider: Linda Powell
Reason for Consult: Headache, ?NPH
Subjective/Objective
Subjective Data
Date of Service: August 14, 2024
from h&p:
Patient is a 78 y/o male past medical history of CKD IV secondary to Polycystic Kidney Disease who presents with headache and elevated blood pressure. Additional history is obtained from patient's family at bedside. Patient has been feeling
unwell for the past few days. He has a variety of complaints including generalized weakness with ambulatory dysfunction, lightheadedness / dizziness, and headache. Patient monitors his blood pressure at home which was noted to be a little high
over the past few days, but today very elevated with SBP >200 prompting family to bring him to the emergency department.
from patient's son, there has been cognitive decline over the past year with poor memory, not doing as many chores. he remains independent with basic ADLs. He has had several months of generalized generalized weakness mainly in legs and hands, up
until a few months ago he was walking 2 miles/day. mainly a strength problem more than a balance problem. today his blood pressure came down, headache is improved, now mild
Objective Data
Vital Signs
Temp Pulse Resp BP Pulse Ox
36.6 C 104 22 131/79 96
08/14/24 07:37 08/14/24 06:15 08/14/24 06:15 08/14/24 06:00 08/14/24 06:15
Lab Results
08/14/24 04:35
08/14/24 04:35
PT 12.5 Sec (11.4-14.6) 08/14/24 04:35
INR 0.90 08/14/24 04:35
APTT 31.3 Sec (23.4-35.0) 08/14/24 04:35
Sodium 142 mmol/L (135-145) 08/14/24 04:35
Potassium 5.5 mmol/L (3.5-5.1) H 08/14/24 04:35
BUN 36 mg/dl (9-20) H 08/14/24 04:35
Glucose 96 mg/dl (70-99) 08/14/24 04:35
Calcium 8.8 mg/dl (8.4-10.2) 08/14/24 04:35
Patient Allergies
No Known Allergies Allergy (Verified 06/08/24 10:34)
Physical Exam
-
Awake and alert
VFF, EOMI, no ptosis, face symmetric
b/l UE 5/5 except fulfillment representative 4/5, b/l LE 3/5, tone normal/slightly diminished, no cogwheel rigidity
sensation intact to touch/pin, with significant vibratory loss in ankles
DTR 1+ upper, 2+ knees
Medications
-
Active Medications
Generic Name Dose Route Start Last Admin
Trade Name Freq PRN Reason Stop Dose Admin
Acetaminophen 650 mg 08/13/24 22:14
Acetaminophen 325 Mg Tablet PO 09/10/24 22:13
Q4HPRN PRN
mild pain/ fever>100.5F
Heparin Sodium 5,000 units 08/14/24 00:00 08/14/24 08:57
Heparin 5,000 Units/Ml 1 Ml Vial SC 09/11/24 00:00 5,000 units
Q8 DAKOTAH Administration
Nicardipine/Sodium Chloride 40 mg in 200 mls @ 0 mls/hr 08/13/24 22:14
Cardene IV
PER PROTOCOL DAKOTAH
Protocol
Per Protocol
Sodium Bicarbonate 650 mg 08/14/24 08:00 08/14/24 08:57
Sodium Bicarbonate 650 Mg Tablet PO 09/11/24 07:59 650 mg
BID DAKOTAH Administration
Sodium Chloride 0 flush 08/13/24 22:00
Sodium Chloride 0.9% (Flush) Syringe IV 09/10/24 21:59
PER PROTOCOL DAKOTAH
Home Medications
�Medication �Instructions �Recorded
sodium bicarbonate 650 mg tablet 650 mg PO BID Electrolyte Repletion 05/17/24
chlorthalidone 25 mg tablet 25 mg PO DAILY 08/13/24
--- NOTE | 2024-08-14 11:12 | W.CON.NEPH ---
Consultation
-
Date/Time Consultation Requested: 08/13/246
Date/Time Consultation Performed: 08/14/24 1110
Requesting Provider: Mckay Rasmussen
Performing Provider: Angeli Rahman
Reason for Consultation: CKD and HTN urgency
Medical History
-
Chief Complaint: ANTOINE and high Bps
History of Present Illness:
78 y/o male past medical history of CKD IV secondary to Polycystic Kidney Disease Baseline creatinine is high 2 range, follows nephrology at [facility], hypertension on chlorthalidone who presents with headache and elevated blood pressure. patient
is an under emotional stress since in April, reports he became well depressed and I'm not clear if he is compliant with his medications. He does report some of the medications were discontinued-do not know the details. Lately
for the last few days he's not feeling well with a headache and weakness with them later dysfunction. He complains about dizziness 2. He typically does not monitor blood pressures at home, since when the symptoms blood pressure was checked in the
last few days and yesterday was more than 200 hence brought into the hospital. started on the Cardene drip. He still complains about headache. No nausea or vomiting. No chest pain or shortness of breath. No abdominal pain or dysuria however has
increased urinary frequency. Creatinine has been 2.8, potassium elevated at 5.5. Nephrology consult to further evaluate. In reviewing the history with the family patient has been eating high potassium diet.
CT head shows atrophic appears greater involving frontal and temporal lobes. Ventricular dilation, temporal horn of the left lateral ventricle especially dilated. Findings suggest possible normal pressure hydrocephalus.
Past Medical History
Chronic Kidney Disease Stage IV
Polycystic Kidney Disease
Chronic Metabolic Acidosis
Prostate Cancer
Past Surgical History: Other (Prostatectomy)
Social History
served in [employer] and in [employer].
in [facility] since 6yrs, dies in Apr 2024
Tobacco: Non-Smoker
Alcohol: None
Drug: None
Personal:
Living: With Family
Employment: Retired
Family History
does not know family history
Allergies / Home Medications
Allergy/AdvReac Type Severity Reaction Status Date / Time
No Known Allergies Allergy Verified 06/08/24 10:34
�Medication �Instructions �Recorded �Confirmed �Type
sodium bicarbonate 650 mg tablet 650 mg PO BID Electrolyte Repletion 05/17/24 08/13/24 History
chlorthalidone 25 mg tablet 25 mg PO DAILY 08/13/24 08/13/24 History
Review of Systems
-
All other systems: Negative unless noted
Physical Exam
Vital Signs
Vital Signs
Temp Pulse Resp BP Pulse Ox
97.8 F 77 15 116/66 96
08/14/24 11:56 08/14/24 13:45 08/14/24 13:45 08/14/24 13:45 08/14/24 13:45
Lab Results
WBC 6.7 10^3/uL (4.8-10.8) 08/14/24 04:35
RBC 4.10 10^6/uL (4.70-6.10) L 08/14/24 04:35
Hgb 11.1 g/dL (13.0-18.0) L 08/14/24 04:35
Hct 33.9 % (39.0-52.0) L 08/14/24 04:35
Plt Count 239 10^3/uL (130-400) 08/14/24 04:35
Sodium 142 mmol/L (135-145) 08/14/24 04:35
Potassium 5.5 mmol/L (3.5-5.1) H 08/14/24 04:35
Chloride 115 mmol/L (98-107) H 08/14/24 04:35
Carbon Dioxide 21 mmol/L (22-30) L 08/14/24 04:35
BUN 36 mg/dl (9-20) H 08/14/24 04:35
Creatinine 2.8 mg/dL (0.7-1.3) H 08/14/24 04:35
eGFR 22.39 08/14/24 04:35
Glucose 96 mg/dl (70-99) 08/14/24 04:35
Calcium 8.8 mg/dl (8.4-10.2) 08/14/24 04:35
Albumin 3.4 g/dl (3.5-5.0) L 08/13/24 19:01
Physical Exam
General: Awake, Alert, Oriented, AOx3, No Distress and Nontoxic
HEENT: EOMI, Anicteric, Ear/Nose Intact, Facial Symmetry and Neck Supple
Respiratory: Clear, Rhonchi and Normal Excursion
Cardiac: S1/S2 and Regular Rate/Rhythm
Breast: Deferred by me
Abdomen: Soft, Nontender and Nondistended
Musculoskeletal: No Cyanosis and No Edema
Skin: No Rash and Dry
Neuro: Nonfocal/Grossly Intact
Psych: Mood/afflect pleasant, Insight/judgement good and Appropriate
Data Reviewed
-
Radiology: Report Reviewed by me, Discussed with Patient and Discussed with Family
Labs: Labs Reviewed by me, Discussed with Nurse, Discussed with Patient and Discussed with Family
Assessment/Plan
-
IMP:
Hypertensive Urgency
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
CKD IV From polycystic kidney disease
Chronic Metabolic Acidosis
Hyperkalemia, mild
History of prostate cancer
Chronic anemia
Plan:
A/w ANTOINE and HTN urgency
Hypertension suspected baseline uncontrolled
Possibly there could be some changes in meds last few months do not have details
Resume chlorthalidone, start Procardia 30 mg and try to wean Cardene drip
goal of blood pressures today is at 160
A could potentially titrate up the nifedipine
Consider secondary workup blood pressure remained uncontrolled with 2 meds
Creatinine seemed to be at his baseline, cystic kidney disease
Metabolic acidosis stable, continue oral bicarbonate
Hyperkalemia-diet needs to be controlled, and reviewed with the patient and family, we'll give lokelma
Follow-up bladder scan with urinary frequency
Neurology follow us for suspicion of NPH on the CT, seem unlikely clinically
Discussed with the patient and family, nursing
[2024-08-14] MEDS: LOKELMA 10 GRAM PO (12:04)
[2024-08-14] MEDS: PROCARDIA XL (EXTENDED RELEASE) 30 MG PO (12:04)
[2024-08-14] MEDS: TYLENOL 650 MG PO (13:05)
--- NOTE | 2024-08-14 13:55 | PTCARENOTE ---
Nephrology to bedside this AM. Made aware of elevated K+ and current BP management. Received further orders- admin PO Lokelma and 1st dose of PO Procardia- see MAY. Pt. OOB to chair for approx 3H while BP in goal range. Bladder scanned PVR for
0mL. Cardene gtt turned off @ 1345- see flow sheet. Pt. assisted back to bed; bed alarm active; call florentino in reach. Family @ bedside, updated.
[2024-08-14] MEDS: Hygroton 25 MG PO (16:33)
--- NOTE | 2024-08-14 18:26 | PTCARENOTE ---
pt. remains off cardene gtt. Assisted to ambulate in room and OOB to chair approx 6H on this shift. Assisted pt. back to bed w call florentino in reach. Family @ bedside.
--- NOTE | 2024-08-14 20:00 | PTCARENOTE ---
Addendum entered by Randolph Dhaliwal RN 08/14/24 20:10:
lungs clear. sinus bp wnl off Cardene gtt. ambulates x1 to br. bed alarm in place. son in room poc reviewed
Original Note:
ax3 room air lung s
--- NOTE | 2024-08-14 22:16 | PTCARENOTE ---
bp stable ambulated pt in hallway.
--- NOTE | 2024-08-14 23:13 | PTCARENOTE ---
no change in assessment- pt sleeping soundly- bp wnl
[2024-08-15] VITALS (16 sets, daily range): BP systolic 118–165; BP diastolic 73–107; BMI 23.9
[2024-08-15] MEDS: HEPARIN 5000 UNITS SC ×2 (00:07→07:50)
[2024-08-15 04:49] LABS: Hematocrit 34.8 % (39.0-52.0); Hemoglobin 10.9 g/dL (13.0-18.0); Mean Corp Hgb Conc. 31.3 g/dL (33.0-37.0); Mean Corpuscular Hgb 26.3 pg (27.0-31.0); Mean Corpuscular Volume 83.9 fL (80.0-94.0); Mean Platelet Volume 9.3 fL (7.4-10.4); Platelet Count 255 10^3/uL (130-400); Red Blood Cell Count 4.15 10^6/uL (4.70-6.10); Red Cell Dist. Width 14.6 % (11.5-14.5); White Blood Cell Count 6.7 10^3/uL (4.8-10.8)
[2024-08-15 05:14] LABS: Blood Urea Nitrogen 37 mg/dl (9-20); Calcium 8.7 mg/dl (8.4-10.2); Carbon Dioxide 21 mmol/L (22-30); Chloride 112 mmol/L (98-107); Estimated Creatinine Clearance 19 ml/min; Glucose 92 mg/dl (70-99); Potassium 4.8 mmol/L (3.5-5.1); Sodium 139 mmol/L (135-145); eGFR 21.47
--- NOTE | 2024-08-15 07:43 | PTCARENOTE ---
pt received at change of shift. pt AAOX3. forgetful at times. pt ambulating in room with standby assist. SR on telemetry heart rate in 70s. pulses palpable. +1 pitting edema in lower extremities. pt on room air, lung sounds clear, sat 98%. active
bowel sounds, tolerating diet. voiding in bathroom without difficulty. pt denies pain at this time. see worklist for full nursing assessment and interventions. pt updated on plan of care.
[2024-08-15] MEDS: PROCARDIA XL (EXTENDED RELEASE) 30 MG PO (07:50)
[2024-08-15] MEDS: Hygroton 25 MG PO (07:51)
[2024-08-15] MEDS: SODIUM BICARBONATE 650 MG PO (07:51)
--- NOTE | 2024-08-15 10:57 | W.PN.NEPH.PH ---
Today's Communication / Plan
-
see plan
Assessment/Plan
-
IMP:
Hypertensive Urgency
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
CKD IV From polycystic kidney disease
Chronic Metabolic Acidosis
Hyperkalemia, mild
History of prostate cancer
Chronic anemia
Plan:
A/w ANTOINE and HTN urgency
Hypertension suspected baseline uncontrolled
had admit in Apr with JEROMY and off ARB since, supposed to be on Amlodipine but not seen on home meds
now on Nifedipine and able to be off nicardene gtt since last night
ANTOINE has improved and stable renal function
if needed he could increase NIfedipien dose in future
BP gaol at 140s today
Metabolic acidosis stable, continue oral bicarbonate
Hyperkalemia-improved s/p Lokelma, diet needs to be controlled and reviewed with the patient and family on 08/14
Follow-up bladder scan with urinary frequency-neg pvr
Neurology follow us for suspicion of NPH on the CT, seem unlikely clinically
Discussed with the patient and nursing
If bp stable later today no objection to d/c home
f/u with nephro at [place]
-
-
Date of Service: August 15, 2024
CC / HPI / ROS
-
Chief Complaint:
CKD, HTN urgency
History of Present Illness:
cr 2.9 no change , k normall 4.8
off cardene gtt since last night
Review of Systems:
no cp or sob
no ANTOINE
Labs
-
Labs:
WBC 6.7 10^3/uL (4.8-10.8) 08/15/24 04:19
RBC 4.15 10^6/uL (4.70-6.10) L 08/15/24 04:19
Hgb 10.9 g/dL (13.0-18.0) L 08/15/24 04:19
Hct 34.8 % (39.0-52.0) L 08/15/24 04:19
Plt Count 255 10^3/uL (130-400) 08/15/24 04:19
Sodium 139 mmol/L (135-145) 08/15/24 04:19
Potassium 4.8 mmol/L (3.5-5.1) 08/15/24 04:19
Chloride 112 mmol/L (98-107) H 08/15/24 04:19
Carbon Dioxide 21 mmol/L (22-30) L 08/15/24 04:19
BUN 37 mg/dl (9-20) H 08/15/24 04:19
Creatinine 2.9 mg/dL (0.7-1.3) H 08/15/24 04:19
eGFR 21.47 08/15/24 04:19
Glucose 92 mg/dl (70-99) 08/15/24 04:19
Calcium 8.7 mg/dl (8.4-10.2) 08/15/24 04:19
Albumin 3.4 g/dl (3.5-5.0) L 08/13/24 19:01
Physical Exam
-
Vital Signs:
Vital Signs
Temp Pulse Resp BP Pulse Ox
98.2 F 103 18 155/93 97
08/15/24 07:20 08/15/24 10:45 08/15/24 10:45 08/15/24 10:00 08/15/24 07:36
Cardiovascular:: Regular rate and rhythm
Respiratory:: Bilateral: CTA
Lung Excursion:: Normal
Abdomen:: Nontender and Soft
Bowel Sounds:: Normal
Extremity Edema:: None: Bilateral: (trace)
Basurto Catheter: No
--- NOTE | 2024-08-15 12:00 | PTCARENOTE ---
vital signs stable. no changes in assessment noted. pt ambulating in room without difficulty. son at bedside.
--- NOTE | 2024-08-15 12:50 | W.PN.HOSP.TC ---
Today's Communication/Plan
-
Discharge today
Assessment / Plan
Assessment / Plan
Physical Exam
General: Not in acute distress
HEENT: Normocephalic. Moist mucous membranes
Respiratory: Clear to Auscultation Bilaterally
Cardiac: S1/S2 and Regular Rhythm
GI: Soft and Non Tender. Positive bowel sounds.
Musculoskeletal: No Cyanosis and No Edema
Skin: Warm and Dry
Neuro: Awake, Alert, Oriented and Nonfocal/grossly intact
Psych: Calm
Assessment/Plan
78 y/o male past medical history of CKD IV secondary to Polycystic Kidney Disease who presents with headache and elevated blood pressure. Additional history is obtained from patient's family at bedside. Patient has been feeling unwell for the
past few days. He has a variety of complaints including generalized weakness with ambulatory dysfunction, lightheadedness / dizziness, and headache. Patient monitors his blood pressure at home which was noted to be a little high over the past few
days, but today very elevated with SBP >200 prompting family to bring him to the emergency department.
Hypertensive Urgency - RESOLVED
Headache Associated with Severe Hypertension
-Admitted to ICU
-Weaned off Nicardipine Drip
-Valsartan stopped previously due to hyperkalemia and JEROMY earlier this year
-Patient previously on amlodipine was stopped due to prior history of pedal edema with it
-Continue chlorthalidone (patient takes this at home)
-Continue new medication Procardia 30 mg -- can be increased in the future if needed
-Nephrology consulted at the time of admission, to help with BP management
Headache -- secondary to accelerated hypertension
Abnormal Head CT
Generalized weakness
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
-Follow-up with outpatient neurology regarding AChR binding ab, SPEP/immunofix, outpatient EMG
CKD IV with Chronic Metabolic Acidosis secondary to Polycystic Kidney Disease
-Continue sodium bicarbonate
- Creatinine is 2.8, appears to be at baseline.
- Patient had episode of JEROMY in April 2024 where creatinine peaked at 6.2 subsequently improved
- Continue sodium bicarbonate 650 mg p.o. twice daily for chronic metabolic acidosis related to CKD
- Nephrology consulted
- Follow-up with respite coordinator at [facility]
Suspected Moderate Dementia
- Reports of memory loss
Hyperkalemia, mild
-Continue low potassium diet
-Lokelma given
-Recheck labs in AM
DVT proph: SC Heparin
Code Status: Full Code
More than 30 minutes spent in discharge including
Final examination of the patient
Summarizing hospital stay
Instructions for continuing care to all relevant caregivers
Preparation of discharge records, prescriptions, and referral forms
Total time spent (in minutes): 38
Anticipated Discharge: Today
Subjective/Interval History
-
Date of Service: August 15, 2024
Patient was seen and examined. He denied any headache, blurry vision, chest pain, shortness of breath, abdominal pain, numbness, tingling, new weakness or any other complaints.
Objective Data
-
Labs:
Laboratory Results
08/15/24
04:19
WBC 6.7
Hgb 10.9 L
Hct 34.8 L
Plt Count 255
Sodium 139
Potassium 4.8
Chloride 112 H
Carbon Dioxide 21 L
BUN 37 H
Creatinine 2.9 H
Glucose 92
Calcium 8.7
Vital Signs:
Vital Signs
Temp Pulse Resp BP Pulse Ox
98 F 103 18 155/93 97
08/15/24 11:30 08/15/24 10:45 08/15/24 10:45 08/15/24 10:00 08/15/24 07:36
I&O
08/14/24 08/15/24 08/16/24
06:59 06:59 06:59
Intake Total 25.0 / 25.0 1275.0 / 1275.0 480 / 480
Output Total 600 / 600
Balance -575.0 / -575.0 1275.0 / 1275.0 480 / 480
--- NOTE | 2024-08-15 13:17 | W.PN.INTV ---
Today's Communication / Plan
Recommendations
- Patient off Cardene now
- Stable for transfer out of ICU. [employer] service will sign off, please call as needed.
Assessment
-
Patient is a 78-year-old gentleman with known history of polycystic kidney disease, who presented to the hospital with significantly elevated blood pressure as well as headache. Patient reportedly has been feeling poorly for the last few days.
Blood pressure is being monitored at home and has been lately noted to be higher. In the emergency room systolic blood pressure was noted to be more than 200. Patient was admitted to the ICU and started on nicardipine infusion for blood pressure
control in view of hypertensive urgency. [employer] consult was requested for further input.
#1. Hypertensive urgency.
- Improved. Off Cardene now. Neuro status at baseline.
- Started on Chlorthalidone and Nifedipine XL 30 mg/d.
- CT head without any evidence of intracranial hemorrhage
- ? Age-related atrophy with ventricular enlargement versus underlying NPH. Neurology consult. Not felt to ne NPH
#2. Chronic kidney disease stage IV, history of polycystic kidney disease
- Creatinine at baseline
- Patient had episode of JEROMY in April 2024 where creatinine peaked at 6.2 subsequently improved
- Continue sodium bicarbonate 650 mg p.o. twice daily for chronic metabolic acidosis related to CKD
- Nephrology consult
#3. H/o Prostate cancer
DVT prophylaxis with subcu heparin.
Updated daughter in law at bedside
Critical Care time 45 mins -- The patient is admitted for acute critical illness for the treatment of vital organ failure and/or prevention of further life-threatening conditions. Total care includes time spent in review of history, physical exam,
medications, hemodynamic/ventilator parameters, laboratory data, imaging and discussion with house staff, pharmacy, respiratory therapy, party plan sales director, and nursing.
Data:
CT Head 07/2024: Atrophy which appears greater involving the frontal and temporal lobes.
Ventricular dilation, which appears slightly greater than the degree of atrophy. The temporal horn of the left lateral ventricle is especially dilated.
Findings suggest the possibility of normal pressure hydrocephalus and please correlate clinically.
CXR 07/2024: Unremarkable
Renal US 04/2024: Innumerable bilateral renal cysts again seen.
No findings to suggest renal collecting system dilatation bilaterally.
Virtually empty urinary bladder, limited.
Subjective Dataa
Subjective Data
Date of Service:
Date of Service: August 15, 2024
Subjective:
Comfortably sitting in the chair, no new complaints
Review of Systems
Genitourinary: Other (All 14 systems reviewed and negative except as stated above in the history of present illness.)
Objective Data
Data Reviewed
Vital Signs / I&O / Oxygen:
Vital Signs
Temp Pulse Resp BP Pulse Ox
98 F 103 18 155/93 97
08/15/24 11:30 08/15/24 10:45 08/15/24 10:45 08/15/24 10:00 08/15/24 07:36
Intake and Output
08/14/24 08/15/24 08/16/24
06:59 06:59 06:59
Intake Total 25.0 / 25.0 1275.0 / 1275.0 480 / 480
Output Total 600 / 600
Balance -575.0 / -575.0 1275.0 / 1275.0 480 / 480
SaO2 97
Physical Exam
General: Comfortable
HEENT: Normocephalic
Cardiovascular: S1-S2
Respiratory: Clear and Non-Labored Respirations
GI: Soft and Non Distended
Neurology: Awake, Alert and Oriented
Skin: Warm
Labs/Micro/Reports
Lab Data
08/15/24 04:19
08/15/24 04:19
Microbiology
08/13/24 19:25 Urine Urine Culture - Final
--- NOTE | 2024-08-15 15:12 | CM ---
Patient seen at bedside with son present in ICU. Patient has only MA no MC. Patient declined VN supports with son and plan is for patient to be discharged home today. CM will continue to follow for discharge planning needs.
Plan: home with no needs- declined VN.
[2024-08-18 12:00] LABS: Albumin 3.69 g/dL (3.75-5.01); Alpha 1 Globulin 0.33 g/dL (0.19-0.46); SPEP IFE Reflex Not Done; Total Protein-Electrophoresis 6.6 g/dL (6.3-8.2)
== END 2024-08-15 16:30 | disposition home or self-care (01) | DRG 305 ==
LOC: ICU 21:44
PROVIDERS: Physician Assistant Medical; ADMITTING PHYSICIAN Internal Medicine; ATTENDING PHYSICIAN Hospitalist; CONSULT PHYSICIAN Internal Medicine; CONSULT PHYSICIAN Psychiatry & Neurology Clinical Neurophysiology; EMERGENCY PHYSICIAN Emergency Medicine; FAMILY PHYSICIAN Family Medicine
DX: I16.0 Hypertensive urgency (principal); N18.4 Chronic kidney disease, stage 4 (severe); Q61.3 Polycystic kidney, unspecified; E87.22 Chronic metabolic acidosis; E87.5 Hyperkalemia; F03.90 Unspecified dementia, unspecified severity, without behavioral disturbance, psychotic disturbance, mood disturbance, and anxiety; G62.9 Polyneuropathy, unspecified; Z85.46 Personal history of malignant neoplasm of prostate; D63.1 Anemia in chronic kidney disease; E78.00 Pure hypercholesterolemia, unspecified; N40.2 Nodular prostate without lower urinary tract symptoms; Z79.899 Other long term (current) drug therapy
CPT/HCPCS: 70450; 71045; 80048; 80053; 81003; 81015; 82962; 83735; 84155; 84165; 84443; 84484; 85025; 85027; 85610; 85730; 86041; 86803; 87086; 93005; 97162; 97166; 99291

== ENCOUNTER 2025-01-20 06:16 | Day surgery (SDC) | payer OTHER, SELFPAY | END 2025-01-20 11:12 | disposition home or self-care (01) | LOC: GI 06:16 | PROVIDERS: ATTENDING PHYSICIAN Internal Medicine Gastroenterology | DX: K57.30 Diverticulosis of large intestine without perforation or abscess without bleeding (principal); K64.8 Other hemorrhoids; K55.20 Angiodysplasia of colon without hemorrhage; D12.2 Benign neoplasm of ascending colon; D12.5 Benign neoplasm of sigmoid colon | CPT/HCPCS: 45385; 45380; 88305 ==